=== PATIENT | male | born 1960 | race Hispanic/Latino ===

== ENCOUNTER 2017-06-20 13:50 | Inpatient (IN) | payer SELFPAY ==
[2017-06-20 16:25] LABS: Bilirubin Small (Negative); Blood, Urine Small (Negative); Glucose, Urine (Dipstick) Negative (Negative); Ketone, Urine 15 mg/dL (Negative); Protein, Urine (Dipstick) 100 mg/dL (Neg-Trace)
[2017-06-20 16:26] LABS: Nitrite Positive (Negative)
[2017-06-20 16:51] LABS: Bacteria/HPF None Seen HPF (None Seen)
[2017-06-20 16:54] LABS: Hyaline Casts/LPF >50 HYALINE CAST LPF (0-3 Hyaline)
[2017-06-20] MEDS ORDERED: Piperacillin/Tazobactam 3.375 GM in Sodium Chloride 0.9% 100 ML IVPB SCH (17:00)
[2017-06-20 17:01] LABS: #Eosinphils 0.2 thou/uL (0.0-0.7); #Lymphocytes 1.2 thou/uL (1.20-3.40); #Monocytes 1.2 thou/uL (0.11-0.59); #Neutrophils 14.9 thou/uL (1.40-6.50); %Basophils 0.1 % (0.0-1.0); %Eosinophils 1.1 % (0.0-10.0); %Lymphocytes 6.8 % (21.0-51.0); %Monocytes 6.6 % (0.0-10.0); Hematocrit 43.5 % (42.0-52.0); Mean Platelet Volume 8.1 fL (7.4-10.4); Red Blood Cell (RBC) Count 4.45 mill/uL (4.70-6.10); White Blood Cell (WBC) Count 17.5 thou/uL (4.8-10.8)
[2017-06-20 17:08] LABS: Oval Fat Bodies/HPF None Seen HPF (None Seen); Renal Epithelial None Seen HPF (0-3); Transitional Epithelial NONE SEEN HPF (0-3); Trichomonas/HPF None Seen HPF (None Seen); Yeast-All Forms None Seen HPF (None Seen)
[2017-06-20 17:28] LABS: ALT (SGPT) 36 U/L (8-55); AST (SGOT) 30 U/L (5-34); Alkaline Phosphatase 97 U/L (40-150); Anion Gap 14 mmol/L (10-20); BUN (Urea Nitrogen) 24 mg/dL (8.4-25.7); Bilirubin, Total 1.6 mg/dL (0.2-1.2); Calc. Creatinine Clearance 0 mL/min (70-130); Calcium 8.9 mg/dL (7.8-10.44); Carbon Dioxide 23 mmol/L (22-29); Chloride 104 mmol/L (98-107); Estimated GFR-MDRD 51; Globulin 3.9 g/dL (2.4-3.5); Protein, Total 7.5 g/dL (6.0-8.3)
--- NOTE | 2017-06-20 17:28 | ULT ---
SCROTAL ULTRASOUND: 06/20/17 INDICATION: Scrotal swelling and discharge from the penis. TECHNIQUE: Iverson scale, color doppler with vascular duplex with spectral analysis performed of the scrotum. FINDINGS: The right testicle measures 2.5 x 4.4 x 2.6. Left testicle measures 2.7 x 4.4 x 2.8 cm. There is increased vascular flow to the right testicle. There is a small right sided hydrocele. Ther e is a tiny 2 mm epididymal head cyst involving the right epididymal head. There is prominent scrotal swelling. IMPRESSION: 1. Findings suspicious for scrotal cellulitis. 2. Findings are suspicious for right sided orchitis with associated hydrocele. 3. Right epididymal head cyst. POS: [facility]
[2017-06-20] MEDS ORDERED: Meropenem 1 GM in Sodium Chloride 0.9% 100 ML IVPB SCH (18:00)
[2017-06-20 18:06] LABS: Hemoglobin A1c 6.6 % (4.0-6.0)
[2017-06-20] MEDS ORDERED: Midazolam HCl 2 mg/2 ml Vial ONE (18:19)
[2017-06-20] MEDS ORDERED: Fentanyl 100 MCG/2 ML VIAL ONE ×3 (18:19→19:35)
[2017-06-20] MEDS ORDERED: Bupivacaine 0.25% HCL 30 ML VIAL ONE (18:22)
[2017-06-20] MEDS ORDERED: Bacitracin Zinc Ointment 30 gm TUBE ONE (18:22)
[2017-06-20] MEDS ORDERED: Lidocaine 2% PF 10 ML AMP (For Epidural Use) ONE (18:55)
[2017-06-20] MEDS ORDERED: Propofol 200 MG/20 ML VIAL ONE (18:55)
[2017-06-20] MEDS ORDERED: Ondansetron HCl/PF 4 MG/2 ML Vial ONE (18:55)
--- NOTE | 2017-06-20 19:11 | HP ---
CHIEF COMPLAINT: Perineal abscess. HISTORY OF PRESENT ILLNESS: This is a 56-year-old male who admits to no past medical histo ry who presents with a few-week history of swelling in the base of his scrotum. The pain became mor e severe this afternoon, started to have more drainage in the area, purulent material. Seen in the emergency department where ultrasound showed fluid collection at the base of his scrotum. I have be en consulted for this perineal abscess. Dr. Barba saw him and it does not appear to involve t he scrotum. There are reactive changes in the scrotum but does not appear to be a perineal Kg 's gangrene. PAST MEDICAL HISTORY: He denies. PAST SURGICAL HISTORY: He denies. MEDICINES TAKEN DAILY: None. ALLERGIES: No known drug allergies. SOCIAL HISTORY: No smoking, alcohol or other drugs. REVIEW OF SYSTEMS: Ten-system review of systems otherwise negative. PHYSICAL EXAMINATION: VITAL SIGNS: Blood pressure 127/76, pulse 84, temperature 99.3, respirations 20. HEENT: Sclerae anicteric. Oropharynx clear. NECK: No lymphadenopathy. CHEST: Clear. HEART: Regular rate and rhythm. ABDOMEN: Soft, nontender. EXTREMITIES: No ischemia or edema to extremities. PELVIC: Examination of his perineum, there is scrotal edema. There is skin irritation to the bilat eral groin crease. There is large fluctuant swollen area in the peritoneum at the base of the scrot um going to the perirectal area. Digital rectal exam, there is no obvious perirectal component, but it is just anterior to the perirectal area. ASSESSMENT: Perineal abscess. PLAN: Operative drainage. He is also found to have high glucose. We will put him on sliding scale postop. Obtain medical consult for diabetes teaching and start on some diabetes meds. He will hav e open wound. He will need dressing changes after discharge. He has already been given broad spect rum antibiotics including Zosyn, meropenem, and vancomycin.
[2017-06-20] MEDS ORDERED: Ondansetron HCl/PF 4 MG/2 ML Vial IVP PRN ×2 (19:18→20:26)
[2017-06-20] MEDS ORDERED: Promethazine HCl 25 MG/ML VIAL SLOW IVP PRN (19:18)
[2017-06-20] MEDS ORDERED: Promethazine HCl 25 MG/ML VIAL IM PRN ×2 (19:18→20:26)
--- NOTE | 2017-06-20 19:44 | OP ---
DATE OF PROCEDURE: 06/20/2017 PREOPERATIVE DIAGNOSIS: Perineal infection, locally advanced. POSTOPERATIVE DIAGNOSIS: Perineal infection, locally advanced. PROCEDURE PERFORMED: Incision and drainage of perineal and scrotal abscess. SURGEON: David Stevens M.D. ANESTHESIA: General. ESTIMATED BLOOD LOSS: Minimal. COMPLICATIONS: None. SPECIMEN: None. FINDINGS: There was a perineal abscess. It does tunnel up onto the right side of the scrotum, but there was no evidence of necrosis of the scrotal wall. No evidence of necrotizing infection. Cultu res were taken for anaerobes and aerobes. TECHNIQUE: The patient was taken to the operating room and placed supine on the table. After gener al anesthetic was obtained, the patient was placed in lithotomy position. His perineum and scrotum were prepped and draped in a sterile fashion. A Peter catheter had already been [facility] by Dr. Barba. An ellipse of skin was taken out over the perineum in the most fluct uant part of the abscess. Purulence was obtained. Cultures were taken. This does tunnel slightly towards the perirectal area but also tunnels up over to the right side lateral scrotum, does not inv olve the scrotal wall or the dartos fascia. No evidence of a necrotizing infection. There was chloe a to the scrotum. The wound was irrigated copiously using sterile solution. The wound was packed u sing wet-to-dry saline-soaked gauze. The patient is en route to recovery in stable condition.
[2017-06-20] MEDS ORDERED: Dextrose 50% Abboject 50 ML SYRINGE SLOW IVP PRN ×2 (20:26)
[2017-06-20] MEDS ORDERED: Morphine Sulfate 2 MG/ML SYRINGE IVP PRN (20:26)
[2017-06-20] MEDS ORDERED: Ondansetron ODT 4 MG TAB PO PRN (20:26)
[2017-06-20] MEDS ORDERED: Dextrose 5% in Water 1,000 ML IV PRN (20:26)
[2017-06-20] MEDS ORDERED: Vancomycin HCl 1 GM in Sodium Chloride 0.9% 250 ML 250 ML IVPB SCH (21:00)
[2017-06-20] MEDS: 1/2 NS w/KCL 20 mEq 1,000 ML IV SCH (21:35)
[2017-06-20] MEDS: HYDROcodone/Acetaminophen 10/325 mg Tablet PO PRN (21:35)
[2017-06-20] MEDS: Famotidine 20 MG TAB PO SCH (21:35)
[2017-06-20] MEDS ORDERED: Meropenem 2 GM in Sodium Chloride 0.9% 100 ML IVPB SCH (22:00)
--- NOTE | 2017-06-20 22:02 | CON ---
DATE OF CONSULTATION: 06/20/2017 REASON FOR CONSULT: Perineal abscess. HISTORY OF PRESENT ILLNESS: Mr. Ozuna is a 56-year-old male, who has never seen a primary care physician and presented to the emergency room with 1-1/2 wk history of drainage from the perineal site. The patient states that this started as a boil and subsequently began to increase in size. He denies obstructive urinary symptoms. He had remote history of sexually transmitted disease in his 20s; however, denies dysuria, gross hematuria, split stream, denies sensation of incomplete void. He is currently afebrile in the emergency room with vital signs; temperature 99.3, blood pressure 127/66, pulse 86, and respiratory rate 20. Pain is rated as 0. 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 PAST MEDICAL HISTORY: None. PAST SURGICAL HISTORY: None. SOCIAL HISTORY: Denies tobacco abuse, illicit drug use, occasional beer. ALLERGIES: No known drug allergies. PHYSICAL EXAMINATION: VITAL SIGNS: Blood pressure 127/76, pulse 84, respiratory rate 20, temperature 99.3. Pain is 0. GENERAL: The patient appears to be in no acute distress. ABDOMEN: Soft, protuberant, nontender, nondistended. GENITOURINARY: Significant bilateral scrotal edema, there is a purulent drainage emanating from the perineum. Digital rectal exam demonstrates no digital rectal tenderness. Prostate is grossly unremarkable. Most of the fluctuance is emanating from the perineal region, which is enlarged, with reactive erythema. There is reactive scrotal edema, with pitting changes. There is no gross crepitus. There is some reactive cellulitic changes extending from the perineum to the superior aspect of the scrotum. Penis is uncircumcised. Difficult to retract due to reactive edema. With some moderate amount of pressure reducing the foreskin, 16 [place] Peter catheter was able to be passed without difficulty. Concentrated yellow urine was obtained for return. [employer] GUEST SERVICES ATTENDANT sent per my request. EXTREMITIES: No cyanosis, clubbing or edema. PERTINENT LABS: White count 17, hemoglobin 14, platelet 191, creatinine 1.4, total bilirubin is 1.6, alkaline phosphatase is 9.7. Lactic acid is within normal limits at 2.0. Urinalysis; 100 protein, trace blood, 4 to 6 rbc's, 11 to 20 wbc's, 7 to 10 epithelial cells, positive nitrites. Scrotal ultrasound demonstrates scrotal cellulitic changes, increased blood flow to the right testis consistent with epididymal orchitis. Bilateral flow is appreciated. IMPRESSION AND PLAN: Mr. Ozuna is a 56-year-old male with no significant past medical history, presents with perineal scrotal discomfort. Scrotal ultrasound demonstrates reactive cellulitic changes. Primary abscess is emanating from the perineum with the pustular discharge. General Surgery has also seen the patient, to OR for debridement MTDD
[2017-06-20] MEDS: Piperacillin/Tazobactam 3.375 GM in Sodium Chloride 0.9% 100 ML IVPB SCH (23:30)
[2017-06-20] MEDS: HumaLOG 300 UNITS/3 ML VIAL SC PRN (23:49)
[2017-06-21] MEDS: Meropenem 2 GM, Admixture Fee 1 EACH in Sodium Chloride 0.9% 100 ML IVPB SCH ×3 (03:01→17:22)
[2017-06-21] MEDS: Vancomycin HCl 1 GM in Premix Bag 1 BAG IVPB SCH ×2 (05:07→17:22)
[2017-06-21] MEDS: Piperacillin/Tazobactam 3.375 GM in Sodium Chloride 0.9% 100 ML IVPB SCH (05:07)
[2017-06-21] MEDS: 1/2 NS w/KCL 20 mEq 1,000 ML IV SCH ×3 (05:08→21:09)
[2017-06-21 06:19] LABS: #Eosinphils 0.3 thou/uL (0.0-0.7); #Lymphocytes 1.5 thou/uL (1.20-3.40); #Monocytes 1.3 thou/uL (0.11-0.59); %Lymphocytes 10.8 % (21.0-51.0); %Monocytes 9.2 % (0.0-10.0); Hematocrit 39.3 % (42.0-52.0); Mean Platelet Volume 8.1 fL (7.4-10.4); Red Blood Cell (RBC) Count 3.99 mill/uL (4.70-6.10); White Blood Cell (WBC) Count 14.1 thou/uL (4.8-10.8)
[2017-06-21 06:37] LABS: Anion Gap 9 mmol/L (10-20); BUN (Urea Nitrogen) 19 mg/dL (8.4-25.7); Calc. Creatinine Clearance 0 mL/min (70-130); Calcium 8.1 mg/dL (7.8-10.44); Carbon Dioxide 26 mmol/L (22-29); Chloride 105 mmol/L (98-107); Estimated GFR-MDRD 75
--- NOTE | 2017-06-21 08:26 | PRG ---
DATE OF SERVICE: 06/21/2017 SUBJECTIVE: Mr. Ozuna notes no pain, no nausea. OBJECTIVE: VITAL SIGNS: He is afebrile with a T-max of 100.5, pulse is 62, blood pressure 121/68. His wound i s examined at the bedside with Dr. Barba. There is minimal necrosis, no purulence, no foul sm ell. LABORATORY DATA: White blood cell count is 14, hemoglobin 13 with no bands. Creatinine is 1.03, gl ucose 162. ASSESSMENT: 1. Scrotal and perineal abscess with significant scrotal edema, but no obvious Kg's gangrene. 2. New onset diabetes mellitus type 2. PLAN: Continue to cover broad spectrum antibiotics, await for cultures. We will have wound care pl pedro a wound VAC today. He is going to need to stay here in the hospital until wound stabilizes.
[2017-06-21] MEDS: HYDROcodone/Acetaminophen 10/325 mg Tablet PO PRN (08:33)
[2017-06-21] MEDS: Famotidine 20 MG TAB PO SCH ×2 (08:33→21:09)
--- NOTE | 2017-06-21 09:53 | PRG ---
DATE OF SERVICE: 06/21/2017 INPATIENT PROGRESS NOTE SUBJECTIVE: The patient is resting comfortably. OBJECTIVE: GENERAL APPEARANCE: The patient is seen and examined with Dr. Stevens. VITAL SIGNS: T-max of 100.5, T-current 99.20, blood pressure 121/68. ABDOMEN: Soft. Incidental umbilical hernia, reducible. GENITOURINARY: There is decreased prepucial penile edema. Peter catheter draining sedimentous urine. Reactive scrotal perineal edema. I\D site was inspected with Dr. Stevens. The packing was removed. There is mild necrotic tissue at the mid aspect of the perineal tissue with no purulent discharge. The wound was probed, cavity does track along bilaterally along the inguinal crease lateral to the scrotal contents, outside the dartos fascia. The wound was repacked. IMPRESSION AND PLAN: Mr. Ozuna is a 56-year-old male who presented with perineal abscess, postop day #1 status post incision and drainage. Case discussed with Dr. Stevens. The patient will have wound VAC to be initiated today, hospitalist consult as he most likely has occult diabetes. will most likely require wound VAC for several weeks. No indications for diverting colostomy at this time per Dr. Stevens. Consideration for infectious disease consult for possible PICC line if needed. Await culture. CHARLEE
[2017-06-21] MEDS: HumaLOG 300 UNITS/3 ML VIAL SC PRN (13:48)
--- NOTE | 2017-06-21 17:39 | PDOC.PN ---
- Subjective Encounter Start Date: 06/21/17 Encounter Start Time: 17:25 Subjective: Consulted for hyperglycemia in context of perineal abscess s/p I&D POD#1 -: No known hx of DM per pt. Glucose noted elevated on serial monitoring. -: A1C 6.6 tx with ISS. Reviewed all hx, PE, radiographs. - Objective MAR Reviewed: Yes Vital Signs & Weight: Vital Signs (12 hours) Temp Pulse Resp BP Pulse Ox 06/21/17 15:17 98.7 F 58 L 18 159/79 H 98 06/21/17 11:45 97.9 F 58 L 20 124/72 97 06/21/17 11:05 98.5 F 63 16 133/77 96 06/21/17 08:30 99.3 F 69 16 97 06/21/17 07:30 99.3 F 69 16 141/83 H 97 I&O: 06/20/17 06/21/17 06/22/17 06:59 06:59 06:59 Intake Total 1980 Output Total 575 Balance 1405 Result Diagrams: 06/21/17 05:57 06/21/17 05:57 Additional Labs: Accuchecks 06/21/17 06/21/17 06/20/17 11:04 06:36 23:44 POC Glucose 157 H 147 H 233 H Microbiology 06/20/17 21:08 Scrotum - Swab Bacterial Culture - Preliminary 06/20/17 21:08 Scrotum - Swab Staphylococcus aureus 06/20/17 16:50 Venous blood - Right Arm Blood Culture - Preliminary Specimen has been received and culture in progress. No Growth to date. 06/20/17 16:46 Venous blood - Left Arm Blood Culture - Preliminary Specimen has been received and culture in progress. No Growth to date. 06/20/17 16:46 Scrotum - Swab Bacterial Culture - Preliminary Staphylococcus aureus 06/20/17 16:17 Urine voided Urine Culture - Preliminary NO GROWTH AT 24 HOURS Laboratory Tests 06/20/17 06/20/17 06/20/17 16:45 16:45 16:56 WBC 17.5 H Neutrophils % 85.4 H Potassium Creatinine Hemoglobin A1c 6.6 H Lactic Acid Hepatitis A IgM Ab Non-Reactive Hep Bs Antigen Non-Reactive Hep B Core IgM Ab Non-Reactive Hepatitis C Antibody Non-Reactive 06/20/17 06/20/17 06/21/17 16:56 16:56 05:57 WBC Neutrophils % 78.0 H Potassium 3.0 L Creatinine 1.44 H Hemoglobin A1c Lactic Acid 2.0 Hepatitis A IgM Ab Hep Bs Antigen Hep B Core IgM Ab Hepatitis C Antibody EKG Reviewed by me: Yes (Tele - SR ) Phys Exam - Physical Examination Constitutional: NAD HEENT: PERRLA, oral pharynx no lesions Neck: no JVD, supple Respiratory: no wheezing, clear to auscultation bilateral Cardiovascular: RRR Gastrointestinal: soft, non-tender, no distention, positive bowel sounds scrotal wound dressing Musculoskeletal: pulses present Neurological: normal sensation, moves all 4 limbs Psychiatric: A&O x 3 Skin: normal turgor, cap refill <2 seconds Dx/Plan (1) Perineal abscess Code(s): L02.215 - CUTANEOUS ABSCESS OF PERINEUM Status: Acute Comment: s/p I&D perineal abscess, POD#1, continue IV abx, local WCT, wound vac, staph spp noted on cx (2) Status post incision and drainage Code(s): Z98.890 - OTHER SPECIFIED POSTPROCEDURAL STATES Status: Acute Comment: see #1 (3) Hypokalemia Code(s): E87.6 - HYPOKALEMIA Status: Acute Comment: KCL 40meq po BID, repeat K+ level in am (4) Diabetes mellitus type 2, uncontrolled Code(s): E11.65 - TYPE 2 DIABETES MELLITUS WITH HYPERGLYCEMIA Status: Chronic Comment: Likely undiagnosed but chronic, start Metformin 500mg BID, ISS, monitor glucose trend, DM education (5) Elevated blood pressure reading Code(s): R03.0 - ELEVATED BLOOD-PRESSURE READING, W/O DIAGNOSIS OF HTN Status : Acute Comment: Monitor trend, may initiate low-dose LUCITA-i given DM II - Plan continue antibiotics, child welfare social worker, out of bed/ambulate, DVT proph w/SCDs Stable overall -: Continue IV Vancomycin and Zosyn, monitor final cx sensitivities -: Start Metformin 500mg BID, ISS -: Monitor blood pressure trend, consider initiation of LUCITA-i -: Pain control * AM lab: BMP, CBC * Thank you for the consult. Will continue to follow with primary service.
[2017-06-21] MEDS ORDERED: Potassium Chloride 20 MEQ TAB PO SCH (18:00)
[2017-06-22] MEDS: Meropenem 2 GM, Admixture Fee 1 EACH in Sodium Chloride 0.9% 100 ML IVPB SCH ×2 (02:45→09:27)
[2017-06-22] MEDS: Vancomycin HCl 1 GM in Premix Bag 1 BAG IVPB SCH ×2 (04:38→18:02)
[2017-06-22 04:49] LABS: Band 10 % (5-11); Hematocrit 38.7 % (42.0-52.0); Mean Platelet Volume 7.5 fL (7.4-10.4); Neutrophil 64 % (42-75); White Blood Cell (WBC) Count 10.2 thou/uL (4.8-10.8)
[2017-06-22 05:18] LABS: Vancomycin, Trough 7.9 ug/mL
[2017-06-22 05:21] LABS: Anion Gap 11 mmol/L (10-20); BUN (Urea Nitrogen) 12 mg/dL (8.4-25.7); Calc. Creatinine Clearance 0 mL/min (70-130); Carbon Dioxide 25 mmol/L (22-29); Chloride 106 mmol/L (98-107); Estimated GFR-MDRD Greater than 90
[2017-06-22] MEDS ORDERED: 1/2 NS w/KCL 20 mEq 1,000 ML IV SCH (07:27)
--- NOTE | 2017-06-22 07:44 | PRG ---
DATE OF SERVICE: 06/22/2017 Mr. Sloan denies pain. He has been up and around, tolerating regular diet. PHYSICAL EXAMINATION: VITAL SIGNS: T-max 100.7, pulse 76, blood pressure 162/84. Urine is more clear now. Urine output is adequate. ABDOMEN: Soft, nontender. : Scrotal wound VAC is intact. LABORATORY: White cell count is 10, hemoglobin 12, platelets are 215, creatinine 0.8, potassium 3.9 . Glucoses are in the low 100s. ASSESSMENT: 1. Deep scrotal abscess, status post drainage. 2. New onset diabetes mellitus. I appreciate Hospitalist assistance. 3. Cultures show methicillin-resistant Staphylococcus aureus. PLAN: I will arrange for discharge home on Zyvox. He probably qualifies for the free home Zyvox pr ogram. Until then, continue and meropenem. Continue wound VAC. I will look at the wound tomorrow on wound VAC change. Again, I appreciate Hospitalist help managing his diabetes.
[2017-06-22] MEDS ORDERED: Potassium Chloride 20 MEQ TAB PO SCH (08:00)
--- NOTE | 2017-06-22 08:16 | PRG ---
DATE OF SERVICE: 06/22/2017 SUBJECTIVE: The patient without complaints, doing well. PHYSICAL EXAMINATION: VITAL SIGNS: T-max of 100.7, T-current is 98, otherwise unremarkable. I's and O's 2285 in, 1475 out. ABDOMEN: Soft. : Perineal exam demonstrable wound VAC in place. There is reactive scrotal edema; however, this continues to improve with contracture of the skin, the demarcated erythema along the superior aspect of the scrotum has improved/ resolved. LABORATORY DATA: White count improved to 10,000, hemoglobin 12, platelets 215, creatinine 0.8. Urine culture is negative. Wound culture MRSA, currently on IV vancomycin and Zosyn. Patient diagnosed with occult diabetes, started on metformin by Hospitalist. IMPRESSION AND PLAN: Mr. Ozuna is a 56-year-old male with occult diabetes who presented with perineal inguinal abscess status post wide debridement. Would prefer wound VAC to be Thursday, Thursday, Thursday, Infectious Disease consult is advised as wound culture demonstrates MRSA most likely will require PICC line. Flomax initiated. Continue indwelling Peter catheter for now. will follow along with you. CHARLEE
[2017-06-22] MEDS: Tamsulosin HCl 0.4 MG CAP PO SCH (09:19)
[2017-06-22] MEDS: Famotidine 20 MG TAB PO SCH ×2 (09:19→21:14)
[2017-06-22] MEDS: 1/2 NS w/KCL 20 mEq 1,000 ML IV SCH (09:33)
[2017-06-22] MEDS: HumaLOG 300 UNITS/3 ML VIAL SC PRN (13:38)
--- NOTE | 2017-06-22 14:30 | PDOC.PN ---
- Subjective Encounter Start Date: 06/22/17 Encounter Start Time: 14:25 Subjective: f/u for new dx of DM II tx for perineal abscess with I&D POD #2. -: Glucose mildly labile on ISS. - Objective MAR Reviewed: Yes Vital Signs & Weight: Vital Signs (12 hours) Temp Pulse Resp BP BP Pulse Ox 06/22/17 12:00 99.5 F 72 16 172/84 H 97 06/22/17 04:00 98.6 F 76 19 162/84 H 97 I&O: 06/21/17 06/22/17 06/23/17 06:59 06:59 06:59 Intake Total 1980 2285 Output Total 575 1475 Balance 1405 810 Result Diagrams: 06/22/17 04:21 06/22/17 04:21 Additional Labs: Accuchecks 06/22/17 06/22/17 06/21/17 05:24 02:53 18:31 POC Glucose 132 H 122 H 150 H 06/21/17 11:04 POC Glucose 157 H Microbiology 06/20/17 21:08 Scrotum - Swab Bacterial Culture - Final 06/20/17 21:08 Scrotum - Swab Anaerobic Culture - Final Methicillin resistant S.aureus 06/20/17 21:08 Scrotum - Swab Bacterial Culture - Preliminary 06/20/17 21:08 Scrotum - Swab Staphylococcus aureus 06/20/17 16:50 Venous blood - Right Arm Blood Culture - Preliminary Specimen has been received and culture in progress. No Growth to date. 06/20/17 16:46 Venous blood - Left Arm Blood Culture - Preliminary Specimen has been received and culture in progress. No Growth to date. 06/20/17 16:46 Scrotum - Swab Bacterial Culture - Preliminary Staphylococcus aureus Gram Negative Chemo 06/20/17 16:46 Scrotum - Swab Bacterial Culture - Preliminary Staphylococcus aureus 06/20/17 16:17 Urine voided Urine Culture - Preliminary NO GROWTH AT 24 HOURS Laboratory Tests 06/20/17 06/20/17 06/20/17 16:45 16:45 16:56 WBC 17.5 H Neutrophils % 85.4 H Potassium Creatinine Hemoglobin A1c 6.6 H Lactic Acid Hepatitis A IgM Ab Non-Reactive Hep Bs Antigen Non-Reactive Hep B Core IgM Ab Non-Reactive Hepatitis C Antibody Non-Reactive 06/20/17 06/20/1717 16:56 16:56 05:57 WBC Neutrophils % 78.0 H Potassium 3.0 L Creatinine 1.44 H Hemoglobin A1c Lactic Acid 2.0 Hepatitis A IgM Ab Hep Bs Antigen Hep B Core IgM Ab Hepatitis C Antibody Phys Exam - Physical Examination Constitutional: NAD HEENT: PERRLA, oral pharynx no lesions Neck: no JVD, supple Respiratory: no wheezing, clear to auscultation bilateral Cardiovascular: RRR Gastrointestinal: soft, non-tender, no distention, positive bowel sounds Musculoskeletal: no edema, pulses present Neurological: normal sensation, moves all 4 limbs Psychiatric: A&O x 3 Skin: normal turgor, cap refill <2 seconds Dx/Plan (1) Perineal abscess Code(s): L02.215 - CUTANEOUS ABSCESS OF PERINEUM Status: Acute Comment: s/p I&D perineal abscess, POD#2, continue IV abx, local WCT, wound vac, MRSA noted on wound cx (2) Status post incision and drainage Code(s): Z98.890 - OTHER SPECIFIED POSTPROCEDURAL STATES Status: Acute Comment: see #1 (3) Hypokalemia Code(s): E87.6 - HYPOKALEMIA Status: Acute Comment: KCL 40meq po BID, resolved, d/c KCL (4) Diabetes mellitus type 2, uncontrolled Code(s): E11.65 - TYPE 2 DIABETES MELLITUS WITH HYPERGLYCEMIA Status: Chronic Comment: Likely undiagnosed but chronic, start Metformin 850mg BID, ISS, monitor glucose trend, DM education (5) HTN (hypertension) Code(s): I10 - ESSENTIAL (PRIMARY) HYPERTENSION Status: Acute Qualifiers: Hypertension type: essential hypertension Qualified Code(s): I10 - Essential (primary) hypertension Comment: Start Lisinopril 5mg daily - Plan continue antibiotics, social services aide, out of bed/ambulate, DVT proph w/SCDs Stable overall -: Continue local WCT -: Continue Vancomycin 1gm IV q12h -: Metformin 850mg BID -: D/C KCL * DM education/teaching
[2017-06-22 16:46] LABS: Vancomycin, Trough 7.1 ug/mL
[2017-06-22] MEDS ORDERED: Vancomycin HCl 500 MG in Sodium Chloride 0.9% 100 ML IVPB SCH (18:15)
--- NOTE | 2017-06-22 20:57 | CON ---
DATE OF CONSULTATION: 06/22/2017 REASON FOR CONSULTATION: Scrotal or perineal abscess. HISTORY OF PRESENT ILLNESS: A 56-year-old, history of type 2 diabetes, most likely undiagnosed, who developed inflammatory process in the perineal area, right behind the scrotum, was admitted and had I\T\D by Dr. Stevens and has a negative pressure dressing at this time. Dr. Barba has evalua oleksandr the patient, did not feel that there was evidence to suggest necrotizing features of Kg's. It did not actually involve the scrotal tissue. REVIEW OF SYSTEMS: Currently, patient is feeling well. No headaches, visual symptoms, sore throat, odynophagia, dysphagia, no cough or sputum production or chest pain, no abdominal pain. No joint s ymptoms. PAST MEDICAL HISTORY: Not aware that he had diabetes mellitus type 2. PAST SURGICAL HISTORY: No surgical history prior to this. ALLERGIES: None. SOCIAL HISTORY: Visiting family members from [place]. Never a smoker, no alcoholic beverage use. MEDICATION: Vancomycin and meropenem. PHYSICAL EXAMINATION: VITAL SIGNS: T-max 100.7, blood pressure 170/84, pulse 72, respirations 16, O2 saturation 97%. GENERAL: Appears in no distress, awake, alert, oriented. The patient has the wound in the base of the scrotum, sort of a raggedy irregular base, peripheral IV access, and he does have a Peter cathet er. NECK: No lymphadenopathy. HEENT: Noncontributory. LUNGS: Clear. HEART: Normal. ABDOMEN: Soft, nondistended or tender. No ascites. No bladder distention. EXTREMITIES: No joint inflammatory activity. NEUROLOGIC: Nonfocal. LABORATORY DATA: White cell count down to 10.2, hemoglobin 12, platelets 215, 64% neutrophils. Maria R melissa: Creatinine 0.8 and bilirubin 1.6. Liver profile normal. Albumin 3.6, globulin 3.9. Vanco mycin trough 7.9 and cultures with MRSA retrieved and one of the samples are gram negative louis, but only in rare amounts, most likely colonizer or contaminant of the sample. ASSESSMENT: Diabetes type 2 with his perineal Staphylococcal abscess, status post incision and jacquie del castillo. Continue vancomycin and a target trough of 15-20 mcg, and obtain patient assistance program f or Zyvox for discharge planning. Alternatively, could use clindamycin as well.
[2017-06-23] MEDS: Vancomycin HCl 1.5 GM in Sodium Chloride 0.9% 250 ML 300 ML IVPB SCH ×2 (04:39→17:27)
--- NOTE | 2017-06-23 07:29 | PRG ---
DATE OF SERVICE: 06/23/2017 SUBJECTIVE: The patient without complaints. OBJECTIVE: VITAL SIGNS: T-max 100.8, temperature current 98.9, otherwise vital signs are stable. I's and O's 960 in, 4250 out of clear dilute urine. ABDOMEN: Soft, nontender, nondistended. Wound VAC is in place. : There continues to be improving scrotal prepucial edema. Contracture the scrotal skin as there is ongoing improvement of scrotal edema. Infectious Disease consult appreciated. Culture demonstrates MRSA, currently on vancomycin. IMPRESSION/PLAN: 1. Mr. Ozuna is a 56-year-old male that presents with perineal groin abscess, status post incisio n and drainage, postop day #3. Wound VAC is to be changed this morning. May contact me if there is concern regarding scrotal involvement. Antibiotic regimen per Infectious Disease. Continue Flomax /indwelling Peter catheter. Voiding trial when patient dispositioned to be discharged. 2. Occult diabetes followed by Hospitalist.
[2017-06-23] MEDS: Tamsulosin HCl 0.4 MG CAP PO SCH (08:53)
[2017-06-23] MEDS: Famotidine 20 MG TAB PO SCH ×2 (08:54→21:00)
[2017-06-23] MEDS: HYDROcodone/Acetaminophen 10/325 mg Tablet PO PRN ×2 (08:54→17:22)
[2017-06-23] MEDS ORDERED: Lisinopril 5 MG TAB PO SCH (09:00)
--- NOTE | 2017-06-23 09:35 | PRG ---
DATE OF SERVICE: 06/23/2017 The patient has no complaints. His wound VAC is taken off by the Wound bench repair technician and the wound is e xamined. There is no necrotic tissue. There is starting to be granulation. There is no purulence or foul smell. His scrotum edema is much improved. ASSESSMENT: Severe scrotal abscess with tunneling status post I\T\D with Instill wound VAC, doing w ell. PLAN: Continue the vancomycin and meropenem for now. His cultures revealed MRSA. We will arrange for some home Zyvox via the unfunded plan.
[2017-06-23 12:31] VITALS: BMI 35.5
--- NOTE | 2017-06-23 14:59 | PDOC.PN ---
- Subjective Encounter Start Date: 06/23/17 Encounter Start Time: 14:50 Subjective: Feeling ok overall. No fever or chills. Receiving IV Vancomycin for -: polymicrobial perineal abscess s/p I&D. - Objective MAR Reviewed: Yes Vital Signs & Weight: Vital Signs (12 hours) Temp Pulse Resp BP BP Pulse Ox 06/23/17 12:37 98.6 F 80 16 107/97 H 96 06/23/17 09:09 98.8 F 77 17 176/94 H 96 06/23/17 08:54 69 174/90 H 06/23/17 08:45 98.6 F 80 16 96 06/23/17 06:44 164/87 H 06/23/17 04:47 69 174/90 H 06/23/17 04:15 98.9 F 69 18 174/90 H 97 Weight Admit Weight 220 lb 4.8 oz Weight 220 lb 4.8 oz I&O: 06/22/17 06/23/17 06/24/17 06:59 06:59 06:59 Intake Total 2285 960 Output Total 1475 4250 Balance 810 -3290 Result Diagrams: 06/22/17 04:21 06/22/17 04:21 Additional Labs: Accuchecks 06/23/17 06/22/17 06/22/17 05:28 23:26 11:47 POC Glucose 113 H 114 H 188 H Microbiology 06/20/17 21:08 Scrotum - Swab Bacterial Culture - Final 06/20/17 21:08 Scrotum - Swab Anaerobic Culture - Final Methicillin resistant S.aureus 06/20/17 16:46 Scrotum - Swab Bacterial Culture - Final Staphylococcus aureus Escherichia coli Streptococcus agalactiae Gp. B 06/20/17 21:08 Scrotum - Swab Bacterial Culture - Preliminary 06/20/17 21:08 Scrotum - Swab Staphylococcus aureus 06/20/17 16:50 Venous blood - Right Arm Blood Culture - Preliminary Specimen has been received and culture in progress. No Growth to date. 06/20/17 16:46 Venous blood - Left Arm Blood Culture - Preliminary Specimen has been received and culture in progress. No Growth to date. 06/20/17 16:46 Scrotum - Swab Bacterial Culture - Preliminary Staphylococcus aureus Gram Negative Chemo 06/20/17 16:46 Scrotum - Swab Bacterial Culture - Preliminary Staphylococcus aureus 06/20/17 16:17 Urine voided Urine Culture - Preliminary NO GROWTH AT 24 HOURS Laboratory Tests 06/20/17 06/20/17 06/20/17 16:45 16:45 16:56 WBC 17.5 H Neutrophils % 85.4 H Potassium Creatinine Hemoglobin A1c 6.6 H Lactic Acid Hepatitis A IgM Ab Non-Reactive Hep Bs Antigen Non-Reactive Hep B Core IgM Ab Non-Reactive Hepatitis C Antibody Non-Reactive 06/20/17 06/20/17 06/21/17 16:56 16:56 05:57 WBC Neutrophils % 78.0 H Potassium 3.0 L Creatinine 1.44 H Hemoglobin A1c Lactic Acid 2.0 Hepatitis A IgM Ab Hep Bs Antigen Hep B Core IgM Ab Hepatitis C Antibody Phys Exam - Physical Examination Constitutional: NAD HEENT: PERRLA, oral pharynx no lesions Neck: no JVD, supple Respiratory: no wheezing, clear to auscultation bilateral Cardiovascular: RRR Gastrointestinal: soft, non-tender, no distention Musculoskeletal: no edema, pulses present Neurological: normal sensation, moves all 4 limbs Psychiatric: A&O x 3 Skin: normal turgor, cap refill <2 seconds Dx/Plan (1) Perineal abscess Code(s): L02.215 - CUTANEOUS ABSCESS OF PERINEUM Status: Acute Comment: s/p I&D perineal abscess, POD#3, continue IV abx, local WCT, wound vac, MRSA noted on wound cx (2) Status post incision and drainage Code(s): Z98.890 - OTHER SPECIFIED POSTPROCEDURAL STATES Status: Acute Comment: see #1 (3) Hypokalemia Code(s): E87.6 - HYPOKALEMIA Status: Acute Comment: KCL 40meq po BID, resolved, d/c KCL (4) Diabetes mellitus type 2, uncontrolled Code(s): E11.65 - TYPE 2 DIABETES MELLITUS WITH HYPERGLYCEMIA Status: Chronic Comment: Likely undiagnosed but chronic, start Metformin 850mg BID, ISS, monitor glucose trend, DM education (5) HTN (hypertension) Code(s): I10 - ESSENTIAL (PRIMARY) HYPERTENSION Status: Acute Qualifiers: Hypertension type: essential hypertension Qualified Code(s): I10 - Essential (primary) hypertension Comment: Increase Lisinopril 10mg daily - Plan plan discussed w/ family, continue antibiotics, PT/OT, social insurance adviser, out of bed/ambulate, DVT proph w/SCDs Stable overall -: Continue Vancomycin 1.5gm IV q12h -: Local WCT, Wound Vac -: Increase Lisinopril 10mg Daily -: Continue Metformin 850mg BID * .
[2017-06-24 05:27] LABS: Vancomycin, Trough 14.9 ug/mL
[2017-06-24] MEDS: Vancomycin HCl 1.5 GM in Sodium Chloride 0.9% 250 ML 300 ML IVPB SCH ×2 (05:38→17:32)
--- NOTE | 2017-06-24 07:40 | PRG ---
DATE OF SERVICE: 06/24/2017 SUBJECTIVE: The patient without complaints. Vital signs are stable, afebrile for 24 hours. PHYSICAL EXAMINATION: VITAL SIGNS: I's and O's, urine output 1550 out, clear. ABDOMEN: Soft, nontender, nondistended. GENITOURINARY: Wound VAC in place. There is no evidence of crepitus, fluctuance or induration. Resolution of cellulitic changes, no significant erythema of the skin is appreciated. Continuing improvement of reactive scrotal edema, contracture of the skin. Currently on vancomycin IV. PERTINENT LABS: Wound culture demonstrates component of Escherichia coli, MRSA. IMPRESSION AND PLAN: Mr. Ozuna is a 56-year-old male, newly diagnosed diabetes who presented with perineal abscess, status post incision and drainage. Wound VAC in place to be changed every Thursday, , sat I am available tomorrow around 7:30 a.m. to assess wound VAC if General Surgery is available at the same time. Continue Peter catheter, vancomycin. Due to his non-insured status, Zyvox is to be arranged for the patient as an outpatient. As there is a component of E. coli, recommend gram negative coverage with Levaquin . Final antibiotic regimen will be deferred to Infectious Disease. Continue Peter catheter. Once discharged, will coordinate followup appointment same day as General Surgery if possible. CHARLEE
[2017-06-24] MEDS: Famotidine 20 MG TAB PO SCH ×2 (08:46→20:12)
[2017-06-24] MEDS: Tamsulosin HCl 0.4 MG CAP PO SCH (08:46)
[2017-06-24] MEDS ORDERED: Lisinopril 10 MG TAB PO SCH (09:00)
[2017-06-24] MEDS ORDERED: Saccharomyces boulardii 250 MG CAP PO SCH (14:15)
--- NOTE | 2017-06-24 14:47 | PRG ---
DATE OF SERVICE: 06/24/2017 SUBJECTIVE: Mr. Sloan is doing well. He has no complaints. He does no looser stools. OBJECTIVE: VITAL SIGNS: He is afebrile. Vital signs are stable. GENITOURINARY: Wound VAC is in place. Scrotum is decreased in swelling. ASSESSMENT AND PLAN: Methicillin-resistant Staphylococcus aureus scrotal abscess. Continue wound V AC for now. My plan would be wound VAC through the weekend, home Thursday on oral antibiotics and wet to dry dressing changes.
--- NOTE | 2017-06-24 15:04 | PDOC.PN ---
- Subjective Encounter Start Date: 06/24/17 Encounter Start Time: 14:50 Subjective: Feels ok overalll. Wound healing appropriately per Urology and Gen Surgery. -: Wound vac planned until 06/28/17 then convert to wet/dry dressings. - Objective MAR Reviewed: Yes Vital Signs & Weight: Vital Signs (12 hours) Temp Pulse Resp BP BP Pulse Ox 06/24/17 12:15 98.7 F 77 16 173/90 H 96 06/24/17 08:46 173/95 H 06/24/17 08:31 98.7 F 77 16 97 06/24/17 08:00 99.0 F 71 14 173/95 H 97 06/24/17 03:56 98.3 F 64 18 156/60 H 95 Weight Admit Weight 220 lb 4.8 oz Weight 220 lb 4.8 oz I&O: 06/23/17 06/24/17 06/25/17 06:59 06:59 06:59 Intake Total 960 2070 Output Total 4250 1550 Balance -3290 520 Result Diagrams: 06/22/17 04:21 06/22/17 04:21 Additional Labs: Accuchecks 06/24/17 06/23/17 10:43 15:56 POC Glucose 129 H 118 H Phys Exam - Physical Examination Constitutional: NAD HEENT: PERRLA, oral pharynx no lesions Neck: no JVD, supple Respiratory: no wheezing, clear to auscultation bilateral Cardiovascular: RRR Gastrointestinal: soft, non-tender, no distention, positive bowel sounds Musculoskeletal: no edema, pulses present Neurological: normal sensation, moves all 4 limbs Psychiatric: A&O x 3 Skin: normal turgor, cap refill <2 seconds Deviation from normal: Wound vac in place in perineal region Dx/Plan (1) Perineal abscess Code(s): L02.215 - CUTANEOUS ABSCESS OF PERINEUM Status: Acute Comment: s/p I&D perineal abscess, POD#4, continue IV abx, local WCT, wound vac, MRSA noted on wound cx, Likely Zyvox for home, will need med assist due to insurance issues (2) Status post incision and drainage Code(s): Z98.890 - OTHER SPECIFIED POSTPROCEDURAL STATES Status: Acute Comment: see #1 (3) Hypokalemia Code(s): E87.6 - HYPOKALEMIA Status: Acute Comment: KCL 40meq po BID, resolved, d/c KCL (4) Diabetes mellitus type 2, uncontrolled Code(s): E11.65 - TYPE 2 DIABETES MELLITUS WITH HYPERGLYCEMIA Status: Chronic Comment: Likely undiagnosed but chronic, start Metformin 850mg BID, ISS, monitor glucose trend, DM education (5) HTN (hypertension) Code(s): I10 - ESSENTIAL (PRIMARY) HYPERTENSION Status: Acute Qualifiers: Hypertension type: essential hypertension Qualified Code(s): I10 - Essential (primary) hypertension Comment: Labile, Increase Lisinopril 20mg daily - Plan plan discussed w/ family, continue antibiotics, social worker clinical, DVT proph w/ SCDs Stable currently -: continue wound vac/WCT -: Likely transition to Zyvox with med assist -: Continue Metformin 850mg BID -: Increase Lisinopril 20mg daily * .
[2017-06-25] MEDS: Vancomycin HCl 1.5 GM in Sodium Chloride 0.9% 250 ML 300 ML IVPB SCH ×2 (05:30→17:43)
--- NOTE | 2017-06-25 07:47 | PRG ---
DATE OF SERVICE: 06/25/2017 SUBJECTIVE: The patient is resting comfortably. PHYSICAL EXAMINATION: VITAL SIGNS: Stable. He has been afebrile for more than 48 hours. No new labs. ABDOMEN: Soft, nontender, nondistended. GENITOURINARY: Demonstrates Peter catheter draining clear yellow urine, adequately secured. There continues to be ongoing improvement of secondary reactive prepucial /scrotal edema. Foreskin now retracts without difficulty. Bilateral reactive scrotal edema, right greater than left. The left hemiscrotum is soft. Right lateral aspect of the scrotum has reactive edema, no fluctuance, no significant erythema. The wound VAC was removed, the presenting wound VAC packing is suboptimal, as it only covers incisional defect. I was able to probe the caudad aspect of the incision demonstrating a track approximately 3-4 cm towards the perirectal region. Initial I\T\D performed by Dr. Stevens demonstrated the incision, tunneled towards the right groin. I am able to demonstrate persistent tunneling with physical exam. No purulent drainage, no necrotic tissue or foul smelling discharge is appreciated. There is granulating tissue.wound was repacked Wound VAC team/ GS updated IMPRESSION/PLAN: Mr. Ozuna is a 56-year-old male with occult diabetes who presented with perineal abscess. There continues to be no evidence of secondary scrotal involvement. The wound was probed, discussed with Wound Care Service, wound VAC to be placed along the right groin, perirectal/perineum. He is progressing adequately. Continue vancomycin, Levaquin coverage for gram-negative species present on culture. Continue wound VAC/vancomycin Levaquin/Peter MTDD
[2017-06-25] MEDS: Saccharomyces boulardii 250 MG CAP PO SCH (08:33)
[2017-06-25] MEDS: Famotidine 20 MG TAB PO SCH ×2 (08:33→20:26)
[2017-06-25] MEDS: Lisinopril 10 MG TAB PO SCH (08:33)
[2017-06-25] MEDS: HYDROcodone/Acetaminophen 10/325 mg Tablet PO PRN (08:34)
[2017-06-25] MEDS: Tamsulosin HCl 0.4 MG CAP PO SCH (08:40)
--- NOTE | 2017-06-25 10:44 | PRG ---
DATE OF SERVICE: 06/25/2017 SUBJECTIVE: Mr. Sloan had his dressing changed today. He has no complaints. Final cultures show MRSA, rare strep and rare gram negative rods. PHYSICAL EXAMINATION: VITAL SIGNS: He is afebrile and his vital signs are stable. ABDOMEN: Soft, nontender. Wound VAC scrotal swelling, much improved. ASSESSMENT: Status post drainage of scrotal and perineal abscess. PLAN: Continue wound VAC. Will attempt to get wound VAC as an outpatient, although this may be dif ficult. Continue IV antibiotics for now.
--- NOTE | 2017-06-25 12:54 | PDOC.PN ---
- Subjective Encounter Start Date: 06/25/17 Encounter Start Time: 12:40 Subjective: Feels good overall. No fever or chills. Glucose trend improved. BP remains -: labile. - Objective MAR Reviewed: Yes Vital Signs & Weight: Vital Signs (12 hours) Temp Pulse Resp BP BP BP Pulse Ox 06/25/17 12:00 97.6 F 67 16 187/93 H 97 06/25/17 08:33 173/95 H 06/25/17 07:45 97.9 F 70 18 179/93 H 98 06/25/17 04:00 98.6 F 73 18 151/83 H 97 06/25/17 01:03 98.9 F 70 16 167/88 H 97 Weight Admit Weight 220 lb 4.8 oz Weight 220 lb 4.8 oz I&O: 06/24/17 06/25/17 06/26/17 06:59 06:59 06:59 Intake Total 2070 750 Output Total 1550 2650 Balance 520 -1900 Result Diagrams: 06/22/17 04:21 06/22/17 04:21 Additional Labs: Accuchecks 06/25/17 06/25/17 06/25/17 11:58 05:38 00:48 POC Glucose 109 109 110 06/24/17 06/24/17 06/23/17 15:48 05:53 22:57 POC Glucose 97 132 H 115 H Phys Exam - Physical Examination Constitutional: NAD HEENT: PERRLA, oral pharynx no lesions Neck: no JVD, supple Respiratory: no wheezing, clear to auscultation bilateral Cardiovascular: RRR Gastrointestinal: soft, non-tender, no distention, positive bowel sounds Musculoskeletal: no edema, pulses present Neurological: normal sensation, moves all 4 limbs Psychiatric: A&O x 3 Skin: normal turgor, cap refill <2 seconds Deviation from normal: wound vac in place, Peter with carlos urine Dx/Plan (1) Perineal abscess Code(s): L02.215 - CUTANEOUS ABSCESS OF PERINEUM Status: Acute Comment: s/p I&D perineal abscess, POD#5, continue IV abx, local WCT, wound vac, MRSA noted on wound cx, Likely Zyvox for home, will need med assist due to insurance issues (2) Status post incision and drainage Code(s): Z98.890 - OTHER SPECIFIED POSTPROCEDURAL STATES Status: Acute Comment: see #1 (3) Hypokalemia Code(s): E87.6 - HYPOKALEMIA Status: Acute Comment: KCL 40meq po BID, resolved, d/c KCL (4) Diabetes mellitus type 2, uncontrolled Code(s): E11.65 - TYPE 2 DIABETES MELLITUS WITH HYPERGLYCEMIA Status: Chronic Comment: Likely undiagnosed but chronic, start Metformin 850mg BID, ISS, monitor glucose trend, DM education (5) HTN (hypertension) Code(s): I10 - ESSENTIAL (PRIMARY) HYPERTENSION Status: Acute Qualifiers: Hypertension type: essential hypertension Qualified Code(s): I10 - Essential (primary) hypertension Comment: Labile, Increase Lisinopril 20mg daily, add Metoprolol 12.5mg BID - Plan continue antibiotics, PT/OT, social worker masters, DVT proph w/SCDs Stable overall -: Continue Levaquin and Vancomycin -: WCT with Wound Vac -: Add Metoprolol 12.5mg BID -: Continue Metformin 850mg BID * .
[2017-06-25] MEDS ORDERED: Metoprolol Tartrate 25 MG TAB PO SCH (14:00)
[2017-06-25] MEDS: Metoprolol Tartrate 25 MG TAB PO SCH (20:26)
[2017-06-26] MEDS: Vancomycin HCl 1.5 GM in Sodium Chloride 0.9% 250 ML 300 ML IVPB SCH ×2 (04:51→16:28)
--- NOTE | 2017-06-26 07:53 | PRG ---
DATE OF SERVICE: 06/26/2017 SUBJECTIVE: The patient without complaints. PHYSICAL EXAMINATION: VITAL SIGNS: Stable. He has been afebrile for more than 48 hours. ABDOMEN: Soft, nontender, nondistended. GENITOURINARY: No evidence of erythema, induration, fluctuance. Ongoing improvement of reactive scrotal edema. Scrotal exam demonstrates bilateral scrotal contents soft. Wound VAC is in place. EXTREMITIES: No cyanosis, clubbing, edema. Urine demonstrating clear dilute urine. No current labs. IMPRESSION AND PLAN: Mr. Ozuna is a 57-year-old male status post I\ D of perineal abscess. Continue wound VAC. Wound inspected yesterday demonstrating no evidence of recurrent abscess. Continue IV vancomycin, Levaquin/ flomax/gray. The patient will most likely stay in house over the weekend, will reassess wound next week. Dr. Grande covering me this weekend if needed/prn MTDD
[2017-06-26] MEDS: Tamsulosin HCl 0.4 MG CAP PO SCH (08:26)
[2017-06-26] MEDS: Famotidine 20 MG TAB PO SCH ×2 (08:26→21:05)
[2017-06-26] MEDS: Metoprolol Tartrate 25 MG TAB PO SCH ×2 (08:27→21:04)
[2017-06-26] MEDS: HYDROcodone/Acetaminophen 10/325 mg Tablet PO PRN (08:28)
[2017-06-26] MEDS: Lisinopril 10 MG TAB PO SCH (08:28)
[2017-06-26] MEDS: Saccharomyces boulardii 250 MG CAP PO SCH (08:28)
--- NOTE | 2017-06-26 14:00 | PDOC.PN ---
- Subjective Encounter Start Date: 06/26/17 Encounter Start Time: 14:00 Subjective: No new complaints. Some pain in scrotal area. No fever or chills. - Objective MAR Reviewed: Yes Vital Signs & Weight: Vital Signs (12 hours) Temp Pulse Resp BP BP Pulse Ox 06/26/17 12:25 97.7 F 58 L 16 163/85 H 97 06/26/17 08:45 98.6 F 67 16 151/86 H 97 06/26/17 08:28 172/87 H 06/26/17 04:00 98.7 F 65 20 131/75 97 Weight Admit Weight 220 lb 4.8 oz Weight 220 lb 4.8 oz I&O: 06/25/17 06/26/17 06/27/17 06:59 06:59 06:59 Intake Total 750 900 Output Total 2650 1850 Balance -1900 -950 Result Diagrams: 06/22/17 04:21 06/22/17 04:21 Additional Labs: Accuchecks 06/26/17 06/26/17 06/25/17 12:42 05:15 23:31 POC Glucose 109 98 99 06/25/17 18:01 POC Glucose 125 H Phys Exam - Physical Examination Constitutional: NAD HEENT: PERRLA, oral pharynx no lesions Neck: no JVD, supple Respiratory: no wheezing, clear to auscultation bilateral Cardiovascular: RRR Gastrointestinal: soft, non-tender, no distention, positive bowel sounds Musculoskeletal: no edema, pulses present Neurological: normal sensation, moves all 4 limbs Psychiatric: A&O x 3 Skin: normal turgor, cap refill <2 seconds Deviation from normal: Scrotal wound vac in place Dx/Plan (1) Perineal abscess Code(s): L02.215 - CUTANEOUS ABSCESS OF PERINEUM Status: Acute Comment: s/p I&D perineal abscess, POD#6, continue IV abx, local WCT, wound vac, MRSA noted on wound cx, Likely Zyvox for home, will need med assist due to insurance issues (2) Status post incision and drainage Code(s): Z98.890 - OTHER SPECIFIED POSTPROCEDURAL STATES Status: Acute Comment: see #1 (3) Hypokalemia Code(s): E87.6 - HYPOKALEMIA Status: Acute Comment: KCL 40meq po BID, resolved, d/c KCL (4) Diabetes mellitus type 2, uncontrolled Code(s): E11.65 - TYPE 2 DIABETES MELLITUS WITH HYPERGLYCEMIA Status: Chronic Comment: Likely undiagnosed but chronic, start Metformin 850mg BID, ISS, monitor glucose trend, DM education (5) HTN (hypertension) Code(s): I10 - ESSENTIAL (PRIMARY) HYPERTENSION Status: Acute Qualifiers: Hypertension type: essential hypertension Qualified Code(s): I10 - Essential (primary) hypertension Comment: Labile, Increase Lisinopril 20mg daily, add Metoprolol 12.5mg BID - Plan continue antibiotics, director of social work, out of bed/ambulate, DVT proph w/SCDs Stable overall -: Continue Levaquin 500mg daily -: Continue Vancomycin 1.5gm IV q12h -: Continue Metformin 850mg BID -: Continue current antihypertensive regimen * Wound vac with local WCT
[2017-06-27] MEDS: Vancomycin HCl 1.5 GM in Sodium Chloride 0.9% 250 ML 300 ML IVPB SCH ×2 (04:32→17:18)
[2017-06-27] MEDS: Saccharomyces boulardii 250 MG CAP PO SCH (08:54)
[2017-06-27] MEDS: Lisinopril 10 MG TAB PO SCH (08:54)
[2017-06-27] MEDS: Tamsulosin HCl 0.4 MG CAP PO SCH (08:54)
[2017-06-27] MEDS: Metoprolol Tartrate 25 MG TAB PO SCH ×2 (08:55→20:36)
[2017-06-27] MEDS: Famotidine 20 MG TAB PO SCH ×2 (08:55→20:35)
[2017-06-27] MEDS: HYDROcodone/Acetaminophen 10/325 mg Tablet PO PRN (09:00)
--- NOTE | 2017-06-27 10:23 | PDOC.PN ---
- Subjective Encounter Start Date: 06/27/17 Encounter Start Time: 09:40 Subjective: feels better -: is amb with wound vac -: no sob - Objective MAR Reviewed: Yes Vital Signs & Weight: Vital Signs (12 hours) Temp Pulse Resp BP BP BP Pulse Ox 06/27/17 08:54 174/85 H 06/27/17 07:53 98.5 F 63 14 174/85 H 98 06/27/17 04:00 98.1 F 61 16 154/82 H 96 06/27/17 00:05 98.1 F 59 L 16 151/84 H 97 Weight Admit Weight 220 lb 4.8 oz Weight 220 lb 4.8 oz I&O: 06/26/17 06/27/17 06/28/17 06:59 06:59 06:59 Intake Total 900 560 Output Total 1850 2150 Balance -950 -1590 Result Diagrams: 06/22/17 04:21 06/22/17 04:21 Additional Labs: Accuchecks 06/27/17 06/27/17 06/26/17 05:47 00:30 18:25 POC Glucose 85 99 95 06/26/17 12:42 POC Glucose 109 Phys Exam - Physical Examination HEENT: PERRLA, moist MMs Neck: no JVD, supple Respiratory: no wheezing, no rales Cardiovascular: RRR, no significant murmur Gastrointestinal: soft, non-tender, positive bowel sounds perineum in wound vac Musculoskeletal: pulses present Neurological: non-focal, moves all 4 limbs Psychiatric: A&O x 3 Dx/Plan (1) Perineal abscess Code(s): L02.215 - CUTANEOUS ABSCESS OF PERINEUM Status: Acute Comment: s/p I&D perineal abscess, continue IV abx, local WCT, wound vac, MRSA noted on wound cx with polymicrobial tomás (2) DM type 2 (diabetes mellitus, type 2) Status: Chronic Qualifiers: Diabetes mellitus complication status: with unspecified complications Diabetes mellitus intermediate project manager insulin use: without intermediate project manager use Qualified Code( s): E11.8 - Type 2 diabetes mellitus with unspecified complications (3) Obesity (BMI 30-39.9) Code(s): E66.9 - OBESITY, UNSPECIFIED Status: Chronic (4) HTN (hypertension) Code(s): I10 - ESSENTIAL (PRIMARY) HYPERTENSION Status: Chronic Qualifiers: Hypertension type: essential hypertension Qualified Code(s): I10 - Essential (primary) hypertension - Plan is on metformin 850mg bid, fingerstick is good -: continue current meds for htn -: is on vanc and levaquin -: will need outpt wound vac and likely med assist for dc plan -: is ambulating with wound vac * . Review of Systems - Medications/Allergies Allergies/Adverse Reactions: Allergies Allergy/AdvReac Type Severity Reaction Status Date / Time No Known Drug Allergies Allergy Verified 06/21/17 08:29 Medications: Current Medications Hydrocodone Bitart/Acetaminophen ([place] 10/325) 1 tab PO Q6H PRN PRN Reason: Mild-Moderate Pain (1-5) Last Admin: 06/23/17 17:22 Dose: 1 tab Hydrocodone Bitart/Acetaminophen ([place] 10/325) 2 tab PO Q6H PRN PRN Reason: Severe Pain (7-10) Last Admin: 06/27/17 09:00 Dose: 2 tab Albuterol/Ipratropium (Duoneb) 3 ml NEB Q4H PRN PRN Reason: Wheezing Dextrose/Water (Dextrose 50%) 25 gm SLOW IVP PRN PRN PRN Reason: Hypoglycemia Famotidine (Pepcid) 20 mg PO BID SHAGGY Last Admin: 06/27/17 08:55 Dose: 20 mg Glucagon (Glucagon) 1 mg IM PRN PRN PRN Reason: Hypoglycemia Hydralazine HCl (Apresoline) 10 mg SLOW IVP Q4H PRN PRN Reason: SBP > 170 or DBP > 100 Last Admin: 06/25/17 22:35 Dose: 10 mg Dextrose/Water (D5w) 1,000 mls @ 0 mls/hr IV .Q0M PRN; As Directed PRN Reason: Hypoglycemia Potassium Chloride/Sodium Chloride (1/2 Ns W/Kcl 20 Meq) 1,000 mls @ 0 mls/hr IV .Q0M SHAGGY PRN Reason: KVO Last Admin: 06/22/17 09:19 Dose: 1,000 mls Vancomycin HCl 1.5 gm/ Sodium (Chloride) 300 mls @ 200 mls/hr IVPB 0500,1700 SHAGGY Last Admin: 06/27/17 04:32 Dose: 300 mls Insulin Human Lispro (Humalog) 0 units SC .MILD SLIDING SCALE PRN PRN Reason: Mild Correctional Scale Last Admin: 06/22/17 13:38 Dose: 2 unit Levofloxacin (Levaquin) 500 mg PO 0600 [facility] Last Admin: 06/27/17 05:31 Dose: 500 mg Lisinopril (Zestril) 20 mg PO DAILY [facility] Last Admin: 06/27/17 08:54 Dose: 20 mg Metformin HCl (Glucophage) 850 mg PO BID-[facility] Last Admin: 06/27/17 09:49 Dose: 850 mg Metoprolol Tartrate (Lopressor) 12.5 mg PO BID [facility] Last Admin: 06/27/17 08:55 Dose: 12.5 mg Miscellaneous Medication (Pharmacy To Dose) 0 each IVPB ASDIR [facility] Morphine Sulfate (Morphine Sulfate) 2 mg IVP Q2H PRN PRN Reason: Mild Pain (1-3) Morphine Sulfate (Morphine Sulfate) 4 mg IVP Q2H PRN PRN Reason: Moderate Pain (4-6) Last Admin: 06/25/17 07:42 Dose: 4 mg Ondansetron HCl (Zofran Odt) 4 mg PO Q6H PRN PRN Reason: Nausea/Vomiting Ondansetron HCl (Zofran) 4 mg IVP Q6H PRN PRN Reason: Nausea Promethazine HCl (Phenergan) 12.5 mg IM Q4H PRN PRN Reason: Nausea Saccharomyces Boulardii (Florastor) 250 mg PO DAILY [facility] Last Admin: 06/27/17 08:54 Dose: 250 mg Sodium Chloride (Flush - Normal Saline) 10 ml IVF PRN PRN PRN Reason: Saline Flush Tamsulosin HCl (Flomax) 0.4 mg PO DAILY [facility] Last Admin: 06/27/17 08:54 Dose: 0.4 mg
[2017-06-27] MEDS ORDERED: Hydrochlorothiazide 25 MG TAB PO SCH (10:30)
[2017-06-27 16:41] LABS: Vancomycin, Trough 19.3 ug/mL
[2017-06-28] MEDS: Vancomycin HCl 1.5 GM in Sodium Chloride 0.9% 250 ML 300 ML IVPB SCH ×2 (05:19→16:08)
[2017-06-28] MEDS: Lisinopril 10 MG TAB PO SCH (09:34)
[2017-06-28] MEDS: Hydrochlorothiazide 25 MG TAB PO SCH (09:34)
[2017-06-28] MEDS: Famotidine 20 MG TAB PO SCH ×2 (09:34→20:32)
[2017-06-28] MEDS: Potassium Chloride 20 MEQ TAB PO SCH (09:34)
[2017-06-28] MEDS: Metoprolol Tartrate 25 MG TAB PO SCH ×2 (09:35→20:32)
[2017-06-28] MEDS: Tamsulosin HCl 0.4 MG CAP PO SCH (09:36)
[2017-06-28] MEDS: Saccharomyces boulardii 250 MG CAP PO SCH (09:36)
--- NOTE | 2017-06-28 10:36 | PDOC.PN ---
- Subjective Encounter Start Date: 06/28/17 Encounter Start Time: 08:20 -: old records requested/rev Patient seen and examined. No new complaints. No overnight events - Objective MAR Reviewed: Yes Vital Signs & Weight: Vital Signs (12 hours) Temp Pulse Resp BP BP Pulse Ox 06/28/17 09:34 150/78 H 06/28/17 08:00 98.6 F 62 16 150/78 H 98 06/28/17 04:00 98.6 F 55 L 16 152/81 H 97 06/28/17 00:00 98.7 F 56 L 16 150/78 H 97 Weight Admit Weight 220 lb 4.8 oz Weight 220 lb 4.8 oz I&O: 06/27/17 06/28/17 06/29/17 06:59 06:59 06:59 Intake Total 560 650 Output Total 2150 1250 Balance -1590 -600 Result Diagrams: 06/22/17 04:21 06/22/17 04:21 Additional Labs: Accuchecks 06/27/17 06/27/17 06/27/17 20:27 15:45 11:23 POC Glucose 116 H 88 101 Phys Exam - Physical Examination Constitutional: NAD HEENT: PERRLA, moist MMs, sclera anicteric Neck: no JVD, supple Respiratory: no wheezing, no rales, no rhonchi Cardiovascular: RRR, no significant murmur, no rub Gastrointestinal: soft, non-tender, no distention, positive bowel sounds Musculoskeletal: no edema, pulses present Neurological: non-focal, normal sensation, moves all 4 limbs Psychiatric: normal affect, A&O x 3 Skin: no rash, normal turgor Deviation from normal: wound vac in place, gray in place Dx/Plan (1) Hypokalemia Code(s): E87.6 - HYPOKALEMIA Status: Acute Comment: (2) Perineal abscess Code(s): L02.215 - CUTANEOUS ABSCESS OF PERINEUM Status: Acute Comment: s/p I&D perineal abscess, continue IV abx, local WCT, wound vac, MRSA noted on wound cx with polymicrobial tomás (3) Status post incision and drainage Code(s): Z98.890 - OTHER SPECIFIED POSTPROCEDURAL STATES Status: Acute Comment: see #1 (4) DM type 2 (diabetes mellitus, type 2) Status: Chronic Qualifiers: Diabetes mellitus complication status: with unspecified complications Diabetes mellitus terminal clerk insulin use: without terminal clerk use Qualified Code( s): E11.8 - Type 2 diabetes mellitus with unspecified complications (5) Diabetes mellitus type 2, uncontrolled Code(s): E11.65 - TYPE 2 DIABETES MELLITUS WITH HYPERGLYCEMIA Status: Chronic Comment: Likely undiagnosed but chronic, start Metformin 850mg BID, ISS, monitor glucose trend, DM education (6) HTN (hypertension) Code(s): I10 - ESSENTIAL (PRIMARY) HYPERTENSION Status: Chronic Qualifiers: Hypertension type: essential hypertension Qualified Code(s): I10 - Essential (primary) hypertension (7) Obesity (BMI 30-39.9) Code(s): E66.9 - OBESITY, UNSPECIFIED Status: Chronic - Plan cont current plan of care, continue antibiotics * DC levaquin as MRSA resistant to that * start doxy 100 mg po bid * wound care * social work to assist medication * gray as per urology * continue vancomycin * medication reviewed as below * symptomatic treatment. Review of Systems - Review of Systems ENT: negative: Ear Pain, Ear Discharge, Nose Pain, Nose Discharge, Nose Congestion, Mouth Pain, Mouth Swelling, Throat Pain, Throat Swelling, Other Respiratory: negative: Cough, Dry, Shortness of Breath, Hemoptysis, SOB with Excertion, Pleuritic Pain, Sputum, Wheezing Cardiovascular: negative: Chest Pain, Palpitations, Orthopnea, Paroxysmal Noc. Dyspnea, Edema, Light Headedness, Other Gastrointestinal: negative: Nausea, Vomiting, Abdominal Pain, Diarrhea, Constipation, Melena, Hematochezia, Other Genitourinary: negative: Dysuria, Frequency, Incontinence, Hematuria, Retention , Other Musculoskeletal: negative: Neck Pain, Shoulder Pain, Arm Pain, Back Pain, Hand Pain, Leg Pain, Foot Pain, Other - Medications/Allergies Allergies/Adverse Reactions: Allergies Allergy/AdvReac Type Severity Reaction Status Date / Time No Known Drug Allergies Allergy Verified 06/21/17 08:29 Medications: Current Medications Hydrocodone Bitart/Acetaminophen ([place] 10/325) 1 tab PO Q6H PRN PRN Reason: Mild-Moderate Pain (1-5) Last Admin: 06/23/17 17:22 Dose: 1 tab Hydrocodone Bitart/Acetaminophen ([place] 10/325) 2 tab PO Q6H PRN PRN Reason: Severe Pain (7-10) Last Admin: 06/27/17 09:00 Dose: 2 tab Albuterol/Ipratropium (Duoneb) 3 ml NEB Q4H PRN PRN Reason: Wheezing Dextrose/Water (Dextrose 50%) 25 gm SLOW IVP PRN PRN PRN Reason: Hypoglycemia Famotidine (Pepcid) 20 mg PO BID [facility] Last Admin: 06/28/17 09:34 Dose: 20 mg Glucagon (Glucagon) 1 mg IM PRN PRN PRN Reason: Hypoglycemia Hydralazine HCl (Apresoline) 10 mg SLOW IVP Q4H PRN PRN Reason: SBP > 170 or DBP > 100 Last Admin: 06/25/17 22:35 Dose: 10 mg Hydrochlorothiazide (Hydrochlorothiazide) 25 mg PO DAILY [facility] Last Admin: 06/28/17 09:34 Dose: 25 mg Dextrose/Water (D5w) 1,000 mls @ 0 mls/hr IV .Q0M PRN; As Directed PRN Reason: Hypoglycemia Potassium Chloride/Sodium Chloride (1/2 Ns W/Kcl 20 Meq) 1,000 mls @ 0 mls/hr IV .Q0M SHAGGY PRN Reason: KVO Last Admin: 06/22/17 09:19 Dose: 1,000 mls Vancomycin HCl 1.5 gm/ Sodium (Chloride) 300 mls @ 200 mls/hr IVPB 0500,1700 [facility] Last Admin: 06/28/17 05:19 Dose: 300 mls Insulin Human Lispro (Humalog) 0 units SC .MILD SLIDING SCALE PRN PRN Reason: Mild Correctional Scale Last Admin: 06/22/17 13:38 Dose: 2 unit Levofloxacin (Levaquin) 500 mg PO 0600 [facility] Last Admin: 06/28/17 05:19 Dose: 500 mg Lisinopril (Zestril) 20 mg PO DAILY [facility] Last Admin: 06/28/17 09:34 Dose: 20 mg Metformin HCl (Glucophage) 850 mg PO BID-[facility] Last Admin: 06/28/17 09:34 Dose: 850 mg Metoprolol Tartrate (Lopressor) 12.5 mg PO BID [facility] Last Admin: 06/28/17 09:35 Dose: 12.5 mg Miscellaneous Medication (Pharmacy To Dose) 0 each IVPB ASDIR [facility] Morphine Sulfate (Morphine Sulfate) 2 mg IVP Q2H PRN PRN Reason: Mild Pain (1-3) Morphine Sulfate (Morphine Sulfate) 4 mg IVP Q2H PRN PRN Reason: Moderate Pain (4-6) Last Admin: 06/25/17 07:42 Dose: 4 mg Ondansetron HCl (Zofran Odt) 4 mg PO Q6H PRN PRN Reason: Nausea/Vomiting Ondansetron HCl (Zofran) 4 mg IVP Q6H PRN PRN Reason: Nausea Potassium Chloride (K-Dur) 20 meq PO QA-[facility] Last Admin: 06/28/17 09:34 Dose: 20 meq Promethazine HCl (Phenergan) 12.5 mg IM Q4H PRN PRN Reason: Nausea Saccharomyces Boulardii (Florastor) 250 mg PO DAILY [facility] Last Admin: 06/28/17 09:36 Dose: 250 mg Sodium Chloride (Flush - Normal Saline) 10 ml IVF PRN PRN PRN Reason: Saline Flush Tamsulosin HCl (Flomax) 0.4 mg PO DAILY [facility] Last Admin: 06/28/17 09:36 Dose: 0.4 mg
[2017-06-28] MEDS ORDERED: Doxycycline 100 MG CAP PO SCH (21:00)
[2017-06-29] MEDS: Vancomycin HCl 1.5 GM in Sodium Chloride 0.9% 250 ML 300 ML IVPB SCH ×2 (05:45→17:57)
[2017-06-29] MEDS: Hydrochlorothiazide 25 MG TAB PO SCH (08:48)
[2017-06-29] MEDS: Famotidine 20 MG TAB PO SCH ×2 (08:49→20:19)
[2017-06-29] MEDS: Lisinopril 10 MG TAB PO SCH (08:49)
[2017-06-29] MEDS: Saccharomyces boulardii 250 MG CAP PO SCH (08:49)
[2017-06-29] MEDS: Metoprolol Tartrate 25 MG TAB PO SCH ×2 (08:49→20:19)
[2017-06-29] MEDS: Potassium Chloride 20 MEQ TAB PO SCH (08:49)
[2017-06-29] MEDS: Tamsulosin HCl 0.4 MG CAP PO SCH (08:50)
--- NOTE | 2017-06-29 09:37 | PRG ---
DATE OF SERVICE: 06/29/2017 SUBJECTIVE: The patient without complaints, doing well. PHYSICAL EXAMINATION: VITAL SIGNS: Stable. GENITOURINARY: Peter catheter draining concentrated yellow urine. ABDOMEN: Soft, nontender, nondistended. GENITOURINARY: Decreased scrotal reactive edema, there is no gross fluctuance. Wound VAC is in césar ce. No crepitus is appreciated. EXTREMITIES: No cyanosis, clubbing or edema. IMPRESSION AND PLAN: Mr. Ozuna is a 57-year-old male with occult diabetes, status post i ncision and drainage of perineal abscess. We will attempt to evaluate the wound, a wound VAC change tomorrow with General Surgery. Continue IV vancomycin, plan to transition to oral Zyvox upon disch arge. Please continue IV vancomycin, we will restart p.o. Levaquin as I previously advised. Based on prior scrotal culture demonstrating component of gram negative louis, E. coli as this wound tends t o be polymicrobial. Discontinue doxycycline.
[2017-06-29] MEDS ORDERED: FLU VACC QS2017-18 36 mo. & older 0.5 ML SYRINGE IM ONE (12:00)
--- NOTE | 2017-06-29 12:16 | PDOC.PN ---
- Subjective Encounter Start Date: 06/29/17 Encounter Start Time: 11:00 Patient seen and examined. No new complaints. No overnight events - Objective MAR Reviewed: Yes Vital Signs & Weight: Vital Signs (12 hours) Temp Pulse Resp BP BP Pulse Ox 06/29/17 08:49 150/78 H 06/29/17 08:00 98.4 F 53 L 14 06/29/17 07:49 98.4 F 53 L 14 152/79 H 98 06/29/17 04:00 98 F 56 L 16 135/74 99 Weight Admit Weight 220 lb 4.8 oz Weight 220 lb 4.8 oz I&O: 06/28/17 06/29/17 06/30/17 06:59 06:59 06:59 Intake Total 650 1800 Output Total 1250 1275 Balance -600 525 Result Diagrams: 06/22/17 04:21 06/22/17 04:21 Additional Labs: Accuchecks 06/29/17 06/29/17 06/28/17 11:33 06:08 19:48 POC Glucose 107 112 H 211 H 06/28/17 06/28/17 15:41 05:51 POC Glucose 104 101 Phys Exam - Physical Examination Constitutional: NAD HEENT: PERRLA, moist MMs, sclera anicteric Neck: no JVD, supple Respiratory: no wheezing, no rales, no rhonchi Cardiovascular: RRR, no significant murmur, no rub Gastrointestinal: soft, non-tender, no distention, positive bowel sounds wound vac in place, gray+ Musculoskeletal: no edema, pulses present Neurological: non-focal, normal sensation, moves all 4 limbs Psychiatric: normal affect, A&O x 3 Skin: no rash, normal turgor Dx/Plan (1) Hypokalemia Code(s): E87.6 - HYPOKALEMIA Status: Acute Comment: (2) Perineal abscess Code(s): L02.215 - CUTANEOUS ABSCESS OF PERINEUM Status: Acute Comment: s/p I&D perineal abscess, continue IV abx, local WCT, wound vac, MRSA noted on wound cx with polymicrobial tomás (3) Status post incision and drainage Code(s): Z98.890 - OTHER SPECIFIED POSTPROCEDURAL STATES Status: Acute Comment: see #1 (4) DM type 2 (diabetes mellitus, type 2) Status: Chronic Qualifiers: Diabetes mellitus complication status: with unspecified complications Diabetes mellitus intermodal customer service insulin use: without intermodal customer service use Qualified Code( s): E11.8 - Type 2 diabetes mellitus with unspecified complications (5) Diabetes mellitus type 2, uncontrolled Code(s): E11.65 - TYPE 2 DIABETES MELLITUS WITH HYPERGLYCEMIA Status: Chronic Comment: Likely undiagnosed but chronic, start Metformin 850mg BID, ISS, monitor glucose trend, DM education (6) HTN (hypertension) Code(s): I10 - ESSENTIAL (PRIMARY) HYPERTENSION Status: Chronic Qualifiers: Hypertension type: essential hypertension Qualified Code(s): I10 - Essential (primary) hypertension (7) Obesity (BMI 30-39.9) Code(s): E66.9 - OBESITY, UNSPECIFIED Status: Chronic - Plan cont current plan of care, continue antibiotics, 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 * medication reviewed as below * symptomatic treatment. * diabetes well controlled * medically stable * social work for discharge planning * wound care Review of Systems - Review of Systems ENT: negative: Ear Pain, Ear Discharge, Nose Pain, Nose Discharge, Nose Congestion, Mouth Pain, Mouth Swelling, Throat Pain, Throat Swelling, Other Respiratory: negative: Cough, Dry, Shortness of Breath, Hemoptysis, SOB with Excertion, Pleuritic Pain, Sputum, Wheezing Cardiovascular: negative: Chest Pain, Palpitations, Orthopnea, Paroxysmal Noc. Dyspnea, Edema, Light Headedness, Other Gastrointestinal: negative: Nausea, Vomiting, Abdominal Pain, Diarrhea, Constipation, Melena, Hematochezia, Other Genitourinary: negative: Dysuria, Frequency, Incontinence, Hematuria, Retention , Other Musculoskeletal: negative: Neck Pain, Shoulder Pain, Arm Pain, Back Pain, Hand Pain, Leg Pain, Foot Pain, Other - Medications/Allergies Allergies/Adverse Reactions: Allergies Allergy/AdvReac Type Severity Reaction Status Date / Time No Known Drug Allergies Allergy Verified 06/21/17 08:29 Medications: Current Medications Hydrocodone Bitart/Acetaminophen ([place] 10/325) 1 tab PO Q6H PRN PRN Reason: Mild-Moderate Pain (1-5) Last Admin: 06/23/17 17:22 Dose: 1 tab Hydrocodone Bitart/Acetaminophen ([place] 10/325) 2 tab PO Q6H PRN PRN Reason: Severe Pain (7-10) Last Admin: 06/27/17 09:00 Dose: 2 tab Albuterol/Ipratropium (Duoneb) 3 ml NEB Q4H PRN PRN Reason: Wheezing Dextrose/Water (Dextrose 50%) 25 gm SLOW IVP PRN PRN PRN Reason: Hypoglycemia Famotidine (Pepcid) 20 mg PO BID [facility] Last Admin: 06/29/17 08:49 Dose: 20 mg Glucagon (Glucagon) 1 mg IM PRN PRN PRN Reason: Hypoglycemia Hydralazine HCl (Apresoline) 10 mg SLOW IVP Q4H PRN PRN Reason: SBP > 170 or DBP > 100 Last Admin: 06/25/17 22:35 Dose: 10 mg Hydrochlorothiazide (Hydrochlorothiazide) 25 mg PO DAILY [facility] Last Admin: 06/29/17 08:48 Dose: 25 mg Dextrose/Water (D5w) 1,000 mls @ 0 mls/hr IV .Q0M PRN; As Directed PRN Reason: Hypoglycemia Potassium Chloride/Sodium Chloride (1/2 Ns W/Kcl 20 Meq) 1,000 mls @ 0 mls/hr IV .Q0M SHAGGY PRN Reason: KVO Last Admin: 06/22/17 09:19 Dose: 1,000 mls Vancomycin HCl 1.5 gm/ Sodium (Chloride) 300 mls @ 200 mls/hr IVPB 0500,1700 [facility] Last Admin: 06/29/17 05:45 Dose: 300 mls Insulin Human Lispro (Humalog) 0 units SC .MILD SLIDING SCALE PRN PRN Reason: Mild Correctional Scale Last Admin: 06/22/17 13:38 Dose: 2 unit Lisinopril (Zestril) 20 mg PO DAILY [facility] Last Admin: 06/29/17 08:49 Dose: 20 mg Metformin HCl (Glucophage) 850 mg PO BID-[facility] Last Admin: 06/29/17 08:50 Dose: 850 mg Metoprolol Tartrate (Lopressor) 12.5 mg PO BID [facility] Last Admin: 06/29/17 08:49 Dose: 12.5 mg Miscellaneous Medication (Pharmacy To Dose) 0 each IVPB ASDIR [facility] Morphine Sulfate (Morphine Sulfate) 2 mg IVP Q2H PRN PRN Reason: Mild Pain (1-3) Morphine Sulfate (Morphine Sulfate) 4 mg IVP Q2H PRN PRN Reason: Moderate Pain (4-6) Last Admin: 06/29/17 09:42 Dose: 4 mg Ondansetron HCl (Zofran Odt) 4 mg PO Q6H PRN PRN Reason: Nausea/Vomiting Ondansetron HCl (Zofran) 4 mg IVP Q6H PRN PRN Reason: Nausea Pneumococcal Polyvalent Vaccine (Pneumovax 23) 0.5 ml IM .ONCE ONE Stop: 06/29/17 21:01 Potassium Chloride (K-Dur) 20 meq PO QA-[facility] Last Admin: 06/29/17 08:49 Dose: 20 meq Promethazine HCl (Phenergan) 12.5 mg IM Q4H PRN PRN Reason: Nausea Saccharomyces Boulardii (Florastor) 250 mg PO DAILY [facility] Last Admin: 06/29/17 08:49 Dose: 250 mg Sodium Chloride (Flush - Normal Saline) 10 ml IVF PRN PRN PRN Reason: Saline Flush Last Admin: 06/29/17 06:19 Dose: 10 ml Tamsulosin HCl (Flomax) 0.4 mg PO DAILY [facility] Last Admin: 06/29/17 08:50 Dose: 0.4 mg
--- NOTE | 2017-06-29 15:44 | PRG ---
DATE OF SERVICE: 06/29/2017 SUBJECTIVE: No complaints today. He is afebrile. Vital signs are stable. His scrotal swelling is much improved. His scrotal wound VAC is on. ASSESSMENT: Scrotal abscess, status post incision and drainage, methicillin-resistant Staphylococcu s aureus on vancomycin, not a candidate for home Zyvox program. PLAN: Likely home on clindamycin plus or minus Levaquin whenever home his VAC is approved.
[2017-06-30] MEDS: Vancomycin HCl 1.5 GM in Sodium Chloride 0.9% 250 ML 300 ML IVPB SCH (04:54)
--- NOTE | 2017-06-30 07:32 | PRG ---
DATE OF SERVICE: 06/30/2017 SUBJECTIVE: The patient without complaints. PHYSICAL EXAMINATION: VITAL SIGNS: Stable, afebrile. Urine output is clear. ABDOMEN: Soft, nontender, nondistended. GENITOURINARY: Demonstrates no significant preputial edema, Peter catheter removed at bedside. Wou nd VAC is in place. Minimal reactive scrotal edema persists. No fluctuance, crepitus appreciated. IMPRESSION AND PLAN: Mr. Clark is a 57-year-old male with history of perineal abscess, st atus post incision and drainage, wound VAC is to continue 3 times a week, [facility]. Recommend patient discharge home with appropriate antibiotic the rapy, clindamycin per General Surgery, would recommend Levaquin, adjunct with the course. Continue Flomax. Pending General Surgery follow up, we will try to co-ordinate same day appointment to asses s wound as well. Call if any questions or concerns.
[2017-06-30 08:00] LABS: #Basophils 0.1 thou/uL (0.0-0.2); #Eosinphils 0.2 thou/uL (0.0-0.7); #Lymphocytes 1.8 thou/uL (1.20-3.40); #Monocytes 0.9 thou/uL (0.11-0.59); #Neutrophils 6.1 thou/uL (1.40-6.50); %Basophils 0.6 % (0.0-1.0); %Eosinophils 2.3 % (0.0-10.0); %Lymphocytes 19.8 % (21.0-51.0); %Monocytes 9.5 % (0.0-10.0); Mean Platelet Volume 6.9 fL (7.4-10.4); Red Blood Cell (RBC) Count 4.59 mill/uL (4.70-6.10)
[2017-06-30 08:22] LABS: Anion Gap 13 mmol/L (10-20); BUN (Urea Nitrogen) 28 mg/dL (8.4-25.7); Calc. Creatinine Clearance 60 mL/min (70-130); Calcium 8.9 mg/dL (7.8-10.44); Carbon Dioxide 26 mmol/L (22-29); Chloride 102 mmol/L (98-107); Estimated GFR-MDRD 36
[2017-06-30] MEDS: Saccharomyces boulardii 250 MG CAP PO SCH (08:38)
[2017-06-30] MEDS: Hydrochlorothiazide 25 MG TAB PO SCH (08:39)
[2017-06-30] MEDS: Tamsulosin HCl 0.4 MG CAP PO SCH (08:39)
[2017-06-30] MEDS: Famotidine 20 MG TAB PO SCH (08:39)
[2017-06-30] MEDS: Lisinopril 10 MG TAB PO SCH (08:39)
[2017-06-30] MEDS: Potassium Chloride 20 MEQ TAB PO SCH (08:39)
[2017-06-30] MEDS: Metoprolol Tartrate 25 MG TAB PO SCH (08:40)
--- NOTE | 2017-06-30 10:29 | PDOC.PN ---
- Subjective Encounter Start Date: 06/30/17 Encounter Start Time: 10:30 Patient seen and examined. No new complaints. No overnight events - Objective MAR Reviewed: Yes Vital Signs & Weight: Vital Signs (12 hours) Temp Pulse Resp BP BP BP Pulse Ox 06/30/17 08:39 126/76 06/30/17 08:00 98.5 F 51 L 18 126/76 96 06/30/17 07:39 98.5 F 59 L 18 06/30/17 04:58 98.5 F 59 L 18 119/69 95 06/30/17 00:09 98.1 F 60 18 107/62 95 Weight Admit Weight 220 lb 4.8 oz Weight 220 lb 4.8 oz I&O: 06/29/17 06/30/17 07/01/17 06:59 06:59 06:59 Intake Total 1800 850 Output Total 1275 2250 Balance 525 -1400 Result Diagrams: 06/30/17 07:51 06/30/17 07:51 Additional Labs: Accuchecks 06/30/17 06/29/17 06/29/17 06:19 19:56 15:21 POC Glucose 116 H 140 H 122 H 06/29/17 11:33 POC Glucose 107 Phys Exam - Physical Examination Constitutional: NAD HEENT: moist MMs, sclera anicteric Neck: no JVD, supple Respiratory: no wheezing, no rales, no rhonchi Cardiovascular: RRR, no significant murmur, no rub Gastrointestinal: soft, non-tender, no distention, positive bowel sounds Musculoskeletal: no edema, pulses present Neurological: non-focal, normal sensation Psychiatric: normal affect, A&O x 3 Skin: no rash, normal turgor Dx/Plan (1) Hypokalemia Code(s): E87.6 - HYPOKALEMIA Status: Acute Comment: (2) Perineal abscess Code(s): L02.215 - CUTANEOUS ABSCESS OF PERINEUM Status: Acute Comment: s/p I&D perineal abscess, continue IV abx, local WCT, wound vac, MRSA noted on wound cx with polymicrobial tomás (3) Status post incision and drainage Code(s): Z98.890 - OTHER SPECIFIED POSTPROCEDURAL STATES Status: Acute Comment: see #1 (4) DM type 2 (diabetes mellitus, type 2) Status: Chronic Qualifiers: Diabetes mellitus complication status: with unspecified complications Diabetes mellitus long-term insulin use: without long-term use Qualified Code( s): E11.8 - Type 2 diabetes mellitus with unspecified complications (5) Diabetes mellitus type 2, uncontrolled Code(s): E11.65 - TYPE 2 DIABETES MELLITUS WITH HYPERGLYCEMIA Status: Chronic Comment: Likely undiagnosed but chronic, start Metformin 850mg BID, ISS, monitor glucose trend, DM education (6) HTN (hypertension) Code(s): I10 - ESSENTIAL (PRIMARY) HYPERTENSION Status: Chronic Qualifiers: Hypertension type: essential hypertension Qualified Code(s): I10 - Essential (primary) hypertension (7) Obesity (BMI 30-39.9) Code(s): E66.9 - OBESITY, UNSPECIFIED Status: Chronic - Plan cont current plan of care * plan for discharge today * will send prescription to his pharmacy * medication reviewed as below. * symptomatic treatment. Review of Systems - Review of Systems ENT: negative: Ear Pain, Ear Discharge, Nose Pain, Nose Discharge, Nose Congestion, Mouth Pain, Mouth Swelling, Throat Pain, Throat Swelling, Other Cardiovascular: negative: Chest Pain, Palpitations, Orthopnea, Paroxysmal Noc. Dyspnea, Edema, Light Headedness, Other Gastrointestinal: negative: Nausea, Vomiting, Abdominal Pain, Diarrhea, Constipation, Melena, Hematochezia, Other Genitourinary: negative: Dysuria, Frequency, Incontinence, Hematuria, Retention , Other Musculoskeletal: negative: Neck Pain, Shoulder Pain, Arm Pain, Back Pain, Hand Pain, Leg Pain, Foot Pain, Other - Medications/Allergies Allergies/Adverse Reactions: Allergies Allergy/AdvReac Type Severity Reaction Status Date / Time No Known Drug Allergies Allergy Verified 06/21/17 08:29 Medications: Current Medications Hydrocodone Bitart/Acetaminophen ([place] 10/325) 1 tab PO Q6H PRN PRN Reason: Mild-Moderate Pain (1-5) Last Admin: 06/23/17 17:22 Dose: 1 tab Hydrocodone Bitart/Acetaminophen ([place] 10/325) 2 tab PO Q6H PRN PRN Reason: Severe Pain (7-10) Last Admin: 06/27/17 09:00 Dose: 2 tab Albuterol/Ipratropium (Duoneb) 3 ml NEB Q4H PRN PRN Reason: Wheezing Dextrose/Water (Dextrose 50%) 25 gm SLOW IVP PRN PRN PRN Reason: Hypoglycemia Famotidine (Pepcid) 20 mg PO BID [facility] Last Admin: 06/30/17 08:39 Dose: 20 mg Glucagon (Glucagon) 1 mg IM PRN PRN PRN Reason: Hypoglycemia Hydralazine HCl (Apresoline) 10 mg SLOW IVP Q4H PRN PRN Reason: SBP > 170 or DBP > 100 Last Admin: 06/25/17 22:35 Dose: 10 mg Hydrochlorothiazide (Hydrochlorothiazide) 25 mg PO DAILY [facility] Last Admin: 06/30/17 08:39 Dose: 25 mg Dextrose/Water (D5w) 1,000 mls @ 0 mls/hr IV .Q0M PRN; As Directed PRN Reason: Hypoglycemia Potassium Chloride/Sodium Chloride (1/2 Ns W/Kcl 20 Meq) 1,000 mls @ 0 mls/hr IV .Q0M [facility] PRN Reason: KVO Last Admin: 06/22/17 09:19 Dose: 1,000 mls Vancomycin HCl 1.5 gm/ Sodium (Chloride) 300 mls @ 200 mls/hr IVPB 0500,1700 [facility] Last Admin: 06/30/17 04:54 Dose: 300 mls Insulin Human Lispro (Humalog) 0 units SC .MILD SLIDING SCALE PRN PRN Reason: Mild Correctional Scale Last Admin: 06/22/17 13:38 Dose: 2 unit Lisinopril (Zestril) 20 mg PO DAILY [facility] Last Admin: 06/30/17 08:39 Dose: Not Given Metformin HCl (Glucophage) 850 mg PO BID-[facility] Last Admin: 06/30/17 08:39 Dose: 850 mg Metoprolol Tartrate (Lopressor) 12.5 mg PO BID [facility] Last Admin: 06/30/17 08:40 Dose: Not Given Miscellaneous Medication (Pharmacy To Dose) 0 each IVPB ASDIR [facility] Morphine Sulfate (Morphine Sulfate) 2 mg IVP Q2H PRN PRN Reason: Mild Pain (1-3) Morphine Sulfate (Morphine Sulfate) 4 mg IVP Q2H PRN PRN Reason: Moderate Pain (4-6) Last Admin: 06/29/17 09:42 Dose: 4 mg Ondansetron HCl (Zofran Odt) 4 mg PO Q6H PRN PRN Reason: Nausea/Vomiting Ondansetron HCl (Zofran) 4 mg IVP Q6H PRN PRN Reason: Nausea Potassium Chloride (K-Dur) 20 meq PO QAM-[facility] Last Admin: 06/30/17 08:39 Dose: 20 meq Promethazine HCl (Phenergan) 12.5 mg IM Q4H PRN PRN Reason: Nausea Saccharomyces Boulardii (Florastor) 250 mg PO DAILY [facility] Last Admin: 06/30/17 08:38 Dose: 250 mg Sodium Chloride (Flush - Normal Saline) 10 ml IVF PRN PRN PRN Reason: Saline Flush Last Admin: 06/29/17 06:19 Dose: 10 ml Tamsulosin HCl (Flomax) 0.4 mg PO DAILY [facility] Last Admin: 06/30/17 08:39 Dose: 0.4 mg
--- NOTE | 2017-06-30 11:21 | DIS ---
DATE OF ADMISSION: 06/20/2017 DATE OF DISCHARGE: 06/30/2017 PRIMARY CARE PHYSICIAN: [facility] call admission. DISCHARGE DISPOSITION: Home. PRIMARY DISCHARGE DIAGNOSES: Perineal abscess, status post incision and drainage, hypokalemia, adeola ected. SECONDARY DISCHARGE DIAGNOSES: Diabetes type 2, hypertension, obesity with BMI 35. PRIMARY PROCEDURE/OPERATION: I\T\D was performed by Dr. Barba and Dr. Stevens. RADIOLOGICAL INVESTIGATION: Testicular ultrasound. SIGNIFICANT LABS: Hemoglobin 14.6, creatinine 1.94. Hepatitis profile negative. Scrotal culture g rew MRSA. Blood culture negative. DISCHARGE MEDICATIONS: Lisinopril 10 mg p.o. daily, Florastor 250 mg p.o. daily, Flomax 0.4 mg p.o. daily, metformin 850 mg p.o. b.i.d., clindamycin 300 mg p.o. q.6 hourly. CONTRAINDICATIONS: None. CODE STATUS: FULL CODE. INPATIENT CONSULTANTS: Dr. Barba and Dr. Stevens were following while in hospital. Lesvia zimmerman was consulted for medical management. TEST RESULTS PENDING ON DISCHARGE: None. ALLERGIES: No known drug allergy. DISCHARGE PLAN: Post hospital, the patient will follow up with primary care physician, wound care t mary as well as Dr. Salima Barba and Dr. Stevens as instructed. HOSPITAL COURSE: A 57-year-old male who was admitted by Dr. Stevens. Please see his H\T\P for furt her details. Patient was admitted for perineal abscess on admission and the patient had I\T\D by Dr Oswaldo Stevens. Patient also had a scrotal abscess and that is why Dr. Salima Barba was following. Testicular ultrasound was done while during this admission. The patient was requiring wound VAC th erapy while in hospital. He also has underlying diabetes, hypertension, and that is why we started on above-mentioned medication and all new medication prescriptions given to him upon discharge. Today, the patient is planned for discharge by primary team and we will sign off. Please see progre ss note from today.
[2017-06-30 11:44] VITALS: BP 157/80; TEMP 98.6
== END 2017-06-30 13:56 | disposition home or self-care (01) | DRG 581 ==
LOC: ERS 13:50 → SDC 18:49 → SURG A 20:07
PROVIDERS: ADMIT Surgery; ATTEND Surgery
PROC: 0H99XZZ Drainage of Perineum Skin, External Approach (ICD-10-PCS; principal; 2017-06-20)
PROC: 0V95XZZ Drainage of Scrotum, External Approach (ICD-10-PCS; 2017-06-20)
DX: L02.215 Cutaneous abscess of perineum (principal); E11.65 Type 2 diabetes mellitus with hyperglycemia; I10 Essential (primary) hypertension; B95.62 Methicillin resistant Staphylococcus aureus infection as the cause of diseases classified elsewhere; B96.20 Unspecified Escherichia coli [E. coli] as the cause of diseases classified elsewhere; E87.6 Hypokalemia; N49.2 Inflammatory disorders of scrotum; E66.9 Obesity, unspecified; Z68.35 Body mass index [BMI] 35.0-35.9, adult
CPT/HCPCS: 36415; 36416; 76870; 80048; 80053; 80074; 80202; 81003; 81015; 83036; 83605; 85007; 85025; 85027; 86140; 87040; 87070; 87077; 87086; 87186; 87205; 87491; 87591; 90471; 90732; 93976; 96365; 96366; 96375; A4216; G0009; J0360; J2001; J2185; J2250; J2270; J2405; J2543; J2704; J3010; J3370; J7050; S0020

== ENCOUNTER 2017-07-06 09:01 | Outpatient (CLI) | payer SELFPAY ==
--- NOTE | 2017-07-06 11:26 | HP ---
DATE OF SERVICE: 07/06/2017 HISTORY OF PRESENT ILLNESS: Mr. Eduardo Sloan is a very pleasant 57-year-old gentleman, wh o presents [facility] for evaluation of a wound of the right perineum subsequent to incisio n and drainage of a perineal and scrotal abscess. The patient underwent the preceding procedure on 06/20/[address] David Stevens. Negative pressure therapy was initiated subsequent to surger y and upon discharge from [facility], the patient was referred to the Wound C enter for assistance with dressing changes of the wound VAC. The patient was discharged to home on clindamycin. PAST MEDICAL HISTORY: 1. Diabetes mellitus. 2. Hypertension. PAST SURGICAL HISTORY: Incision and drainage of a perineal and scrotal abscess 06/20/2017. MEDICATIONS: 1. Metformin. 2. Lisinopril. 3. Tramadol. 4. Ciprofloxacin. 5. Tamsulosin. 6. Clindamycin. ALLERGIES: No known diagnosed allergies. SOCIAL HISTORY: Negative for tobacco or ETOH use. FAMILY HISTORY: Significant for diabetes mellitus. The patient states that he has multiple relativ es on the paternal side of his family, who were diagnosed with diabetes mellitus. Family history is negative for coronary artery disease. PHYSICAL EXAMINATION: VITAL SIGNS: Temperature 98.1, pulse 71, respirations 18, blood pressure 108/62. GENERAL: A 57-year-old gentleman lying on table in examination room in no acute distress. HEENT: Normocephalic, atraumatic. NECK: No nuchal rigidity. CHEST: Clear to auscultation. CARDIAC: Regular rate and rhythm. ABDOMEN: Soft. PERINEUM: A wound of the right perineum is present, which measures approximately 3.5 x 1.5 cm. Gra nulation tissue is present within the wound margins. No purulent drainage is associated with the wo und. No erythema of the skin surrounding the wound is present. No maceration of the skin of the pe riwound is noted. EXTREMITIES: No clubbing or cyanosis. NEUROLOGIC: Grossly nonfocal. ASSESSMENT AND PLAN: 1. Wound of right perineum subsequent to incision and drainage of a perineal and scrotal abscess on 06/20/[address] David Stevens. Negative pressure therapy was initiated subsequent to surgery and upon discharge from [facility], the patient was referred to the Wound Center for assistance with dressing changes of the wound VAC. Negative pressure therapy will be continued with the wound VAC dressing changes 2 times per week here in the Wound Center. The patient will be seen by Dr. Salima Barba and Dr. Stevens later this week. I will see Mr. Ozuna again in 2 w eeks. The patient has been reminded to continue p.o. antibiotics as previously prescribed. 2. Diabetes mellitus. Accu-Cheks will be obtained at the time of the patient's clinic visits. The patient has been told that for optimal wound healing, his blood glucoses should remain below 150. 3. Hypertension.
[2017-07-06] MEDS ORDERED: Sodium Chloride 0.9% 15 ML NEB ONE (14:47)
== END 2017-07-06 09:02 | disposition home or self-care (01) ==
LOC: WCC 09:01
PROVIDERS: ATTEND Family Medicine
DX: T81.89XD Other complications of procedures, not elsewhere classified, subsequent encounter (principal); E11.9 Type 2 diabetes mellitus without complications; I10 Essential (primary) hypertension
CPT/HCPCS: 36416; 97605; 99204; A4218; G0463

== ENCOUNTER 2017-07-13 08:52 | Outpatient (CLI) | payer SELFPAY ==
[2017-07-13] MEDS ORDERED: Sodium Chloride 0.9% 15 ML NEB ONE (17:25)
== END 2017-07-13 08:53 | disposition home or self-care (01) ==
LOC: WCC 08:52
PROVIDERS: ATTEND Family Medicine
DX: T81.89XD Other complications of procedures, not elsewhere classified, subsequent encounter (principal)
CPT/HCPCS: 36416; 97605; A4218